=== PATIENT | female | born 1960 | race African-American/Black ===

== ENCOUNTER 2017-12-26 12:55 | Inpatient (IN) | payer OTHER ==
[~2017-12-26] VITALS: Ht 182.9 cm; Wt 112.9 kg
[2017-12-26] MEDS ORDERED: Sodium Chloride 500ML 500 ML IV ONE (13:09)
[2017-12-26 13:10] VITALS: BP 94/77
[2017-12-26] MEDS ORDERED: Solu-MEDROL 125mg Inj IVP ONE (13:15)
[2017-12-26] MEDS: Ipratropium 0.02% Inh Soln 2.5ml UD HHN SCH ×3 (13:21→14:14)
[2017-12-26] MEDS: Albuterol ud Inhalation HHN SCH ×3 (13:21→14:06)
[2017-12-26 13:55] LABS: HEMATOCRIT 40.4 % (37.0-47.0); HEMOGLOBIN 13.6 G/DL (12.0-16.0); MEAN CORPUSCULAR VOLUME 85 FL (80-99); PLATELET COUNT 242 K/UL (150-450); RED BLOOD COUNT 4.73 M/UL (4.20-5.40); RED CELL DISTRIBUTION WIDTH 13.4 % (11.6-14.8); WHITE BLOOD COUNT 16.1 K/UL (4.8-10.8)
[2017-12-26 14:00] VITALS: BP 108/55
[2017-12-26 14:16] LABS: ANION GAP 16 mmol/L (5-15); APPEARANCE,URINE SLIGHTLY CLOUDY; BILIRUBIN, URINE NEGATIVE (NEGATIVE); BLOOD UREA NITROGEN 16 mg/dL (7-18); CALCIUM 9.5 MG/DL (8.5-10.1); CARBON DIOXIDE 24 MMOL/L (21-32); CHLORIDE 99 MMOL/L (98-107); CREATININE 1.6 MG/DL (0.55-1.30); GLUCOSE, URINE (UA) NEGATIVE (NEGATIVE); KETONES,URINE 1+ (NEGATIVE); LEUKOCYTE ESTERASE ,URINE NEGATIVE (NEGATIVE); NITRITE,URINE NEGATIVE (NEGATIVE); PH,URINE 6 (4.5-8.0); POTASSIUM 2.9 MMOL/L (3.5-5.1); PROTEIN,URINE 3+ (NEGATIVE); SODIUM 138 MMOL/L (136-145); UROBILINOGEN,URINE 4 MG/DL (0.0-1.0)
[2017-12-26 14:21] LABS: COLOR,URINE YELLOW
[2017-12-26] MEDS ORDERED: PREDNISOLO15 MG/5 M1 ORAL (14:24)
[2017-12-26 14:26] LABS: ALANINE AMINOTRANSFERASE 14 U/L (12-78); ALBUMIN 2.8 G/DL (3.4-5.0); ALBUMIN/GLOBULIN RATIO 0.5 (1.0-2.7); ALKALINE PHOSPHATASE 73 U/L (46-116); ASPARTATE AMINO TRANSFERASE 20 U/L (15-37); BILIRUBIN,TOTAL 1.6 MG/DL (0.2-1.0)
[2017-12-26 14:28] LABS: BILIRUBIN,DIRECT 0.4 MG/DL (0.0-0.3)
[2017-12-26] MEDS ORDERED: Azithromycin 500 MG in NS 275 ML IV ONE (14:30)
[2017-12-26] MEDS ORDERED: cefTRIAXone 1 GM in NS 55 ML IVPB ONE (14:30)
[2017-12-26] MEDS ORDERED: NS IVLG ONE (14:45)
--- NOTE | 2017-12-26 14:50 | Emergency Room Report ---
History of Present Illness General Chief Complaint: Dyspnea/Respdistress Source: Patient Present Illness HPI 57-year-old female presents ED for evaluation. Patient presenting by EMS with shortness of breath, low O2 sats. Patient states she's been having cough and wheezing for the last one month. History of asthma. Given breathing treatment by EMS. Denies fevers or chills. Denies chest pain. Denies sick contacts or recent travel. No other aggravating or relieving factors. Denies any other associated symptoms Allergies: Coded Allergies: IBUPROFEN (Verified Allergy, Unknown, 12/26/17) TETRACYCLINE (Verified Allergy, Unknown, 12/26/17) Patient History Past Medical History: asthma Past Surgical History: none Pertinent Family History: none Social History: Denies: smoking, alcohol use, drug use Now: No Immunizations: UTD Reviewed Nursing Documentation: PMH: Agreed, PSxH: Agreed Nursing Documentation-PMH Past Medical History: No History, Except For Hx Asthma: Yes Review of Systems All Other Systems: negative except mentioned in HPI Physical Exam Vital Signs Date Time Temp Pulse Resp B/P (MAP) Pulse Ox O2 Delivery O2 Flow Rate FiO2 12/26/17 12:45 98.0 120 20 105/62 92 Room Air 98.1 12/26/17 13:22 2.0 28 Sp02 EP Interpretation: reviewed, normal General Appearance: no apparent distress, alert, GCS 15, non-toxic Head: normocephalic, atraumatic Eyes: bilateral eye normal inspection, bilateral eye PERRL ENT: hearing grossly normal, normal pharynx, no angioedema, normal voice Neck: full range of motion, supple/symm/no masses Respiratory: chest non-tender, decreased breath sounds, speaking full sentences , wheezing Cardiovascular #1: regular rate, rhythm, no edema Cardiovascular #2: 2+ carotid (R), 2+ carotid (L), 2+ radial (R), 2+ radial (L) , 2+ dorsalis pedis (R), 2+ dorsalis pedis (L) Gastrointestinal: normal bowel sounds, non tender, soft, non-distended, no guarding, no rebound Rectal: deferred Genitourinary: normal inspection, no CVA tenderness Musculoskeletal: back normal, gait/station normal, normal range of motion, non- tender Neurologic: alert, oriented x3, responsive, motor strength/tone normal, sensory intact, speech normal Psychiatric: judgement/insight normal, memory normal, mood/affect normal, no suicidal/homicidal ideation Reflexes: 3+ bicep (R), 3+ bicep (L), 3+ tricep (R), 3+ tricep (L), 3+ knee (R) , 3+ knee (L) Skin: normal color, no rash, warm/dry, well hydrated Lymphatic: no adenopathy Medical Decision Making Diagnostic Impression: Primary Impression: Respiratory distress Additional Impressions: Pneumonia Qualified Codes: J18.9 - Pneumonia, unspecified organism Sepsis Qualified Codes: A41.9 - Sepsis, unspecified organism Renal insufficiency ER Course Hospital Course 57-year-old F presenting to ED with respiratory distress, wheezing Differential diagnoses include: Pneumonia, CHF exacerbation, pneumothorax, fluid overload Clinical course Patient placed on stretcher. 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 After initial history and physical, I ordered nebulizer treatments. I ordered labs, IV fluids, EKG, chest x-ray, blood cultures, UA. Patient placed on nasal cannula with O2 saturation improving Labs -leukocytosis noted, hemoglobin/hematocrit stable, Cr 1.6, lactate > 4 CXR - bilateral infiltrates EKG - sinus tachycardia, no ischemic changes abx given. Given 30 mL per KG fluid bolus Patient will require inpatient admission for further treatment and evaluation I feel this is a highly complex case requiring extensive working including EKG/ Rhythm strip, Xray/CT/US, Blood/urine lab work, repeat exams while in ED, and administration of strong opiates/narcotics for pain control, admission to hospital or close patient follow up. Diagnosis - pneumonia, respiratory distress, sepsis, renal insufficiency Patient admitted to telemetry in serious condition Labs Test 12/26/17 13:00 White Blood Count 16.1 K/UL (4.8-10.8) Red Blood Count 4.73 M/UL (4.20-5.40) Hemoglobin 13.6 G/DL (12.0-16.0) Hematocrit 40.4 % (37.0-47.0) Mean Corpuscular Volume 85 FL (80-99) Mean Corpuscular Hemoglobin 28.6 PG (27.0-31.0) Mean Corpuscular Hemoglobin Concent 33.5 G/DL (32.0-36.0) Red Cell Distribution Width 13.4 % (11.6-14.8) Platelet Count 242 K/UL (150-450) Mean Platelet Volume 7.7 FL (6.5-10.1) Neutrophils (%) (Auto) % (45.0-75.0) Lymphocytes (%) (Auto) % (20.0-45.0) Monocytes (%) (Auto) % (1.0-10.0) Eosinophils (%) (Auto) % (0.0-3.0) Basophils (%) (Auto) % (0.0-2.0) Differential Total Cells Counted 100 Neutrophils % (Manual) 89 % (45-75) Lymphocytes % (Manual) 6 % (20-45) Monocytes % (Manual) 5 % (1-10) Eosinophils % (Manual) 0 % (0-3) Basophils % (Manual) 0 % (0-2) Band Neutrophils 0 % (0-8) Platelet Estimate Adequate Platelet Morphology Normal Red Blood Cell Morphology Normal Urine Color Yellow Urine Appearance Slightly cloudy Urine pH 6 (4.5-8.0) Urine Specific [place] 1.010 (1.005-1.035) Urine Protein 3+ (NEGATIVE) Urine Glucose (UA) Negative (NEGATIVE) Urine Ketones 1+ (NEGATIVE) Urine Occult Blood 4+ (NEGATIVE) Urine Nitrite Negative (NEGATIVE) Urine Bilirubin Negative (NEGATIVE) Urine Urobilinogen 4 MG/DL (0.0-1.0) Urine Leukocyte Esterase Negative (NEGATIVE) Urine RBC 2-4 /HPF (0 - 2) Urine WBC 0-2 /HPF (0 - 2) Urine Squamous Epithelial Cells Few /LPF (NONE/OCC) Urine Bacteria Few /HPF (NONE) Sodium Level 138 MMOL/L (136-145) Potassium Level 2.9 MMOL/L (3.5-5.1) Chloride Level 99 MMOL/L (98-107) Carbon Dioxide Level 24 MMOL/L (21-32) Anion Gap 16 mmol/L (5-15) Blood Urea Nitrogen 16 mg/dL (7-18) Creatinine 1.6 MG/DL (0.55-1.30) Estimat Glomerular Filtration Rate 33.0 mL/min (>60) Glucose Level 146 MG/DL (74-106) Lactic Acid Level 4.90 mmol/L (0.66-2.22) Calcium Level 9.5 MG/DL (8.5-10.1) Total Bilirubin 1.6 MG/DL (0.2-1.0) Direct Bilirubin 0.4 MG/DL (0.0-0.3) Aspartate Amino Transf (AST/SGOT) 20 U/L (15-37) Alanine Aminotransferase (ALT/SGPT) 14 U/L (12-78) Alkaline Phosphatase 73 U/L (46-116) Pro-B-Type Natriuretic Peptide 201 pg/mL (0-125) Total Protein 8.2 G/DL (6.4-8.2) Albumin 2.8 G/DL (3.4-5.0) Globulin 5.4 g/dL Albumin/Globulin Ratio 0.5 (1.0-2.7) EKG Diagnostic Results Rate: tachycardiac Rhythm: NSR ST Segments: no acute changes ASA given to the pt in ED: No Rhythm Strip Diag. Results EP Interpretation: yes Rhythm: NSR, no PVC's, no ectopy Chest X-Ray Diagnostic Results Chest X-Ray Diagnostic Results : Chest X-Ray Ordered: Yes # of Views/Limited/Complete: 1 View Indication: Shortness of Breath EP Interpretation: Yes Interpretation: no effusion, no pneumothorax, other - bilateral PNA Impression: Other - PNA Electronically Signed by: Electronically signed by Seymour Chiang MD Last Vital Signs Date Time Temp Pulse Resp B/P (MAP) Pulse Ox O2 Delivery O2 Flow Rate FiO2 12/26/17 14:40 139 16 99 Nasal Cannula 2.0 28 12/26/17 14:00 108/55 12/26/17 13:10 98.8 98.8 Status: improved Disposition: ADMITTED INPATIENT Condition: Serious SEYMOUR CHIANG M.D. Dec 26, 2017 14:50
[2017-12-26 15:00] VITALS: BP 103/59
[2017-12-26] MEDS ORDERED: Azithromycin 500mg Inj IV ONE (15:02)
[2017-12-26] MEDS ORDERED: Albuterol/Ipratropium 3ml neb HHN ONE (15:45)
--- NOTE | 2017-12-26 15:54 | Diagnostic Imaging Report ---
Indication: Shortness of breath Technique: One view of the chest Comparison: None Findings: Bilateral infiltrates are demonstrated, involving the right upper and lower lobes, left lung base, sparing the left upper lobe pleural spaces are clear. Heart size is normal Impression: Bilateral infiltrates, likely pneumonia. Pulmonary edema also a possibility. Correlate with clinical findings
[2017-12-26 16:00] VITALS: BP 123/51
[2017-12-26 17:45] VITALS: BP 117/64
[2017-12-26] MEDS ORDERED: Promethazine/Codeine 5ml UD ORAL PRN (18:15)
[2017-12-26] MEDS ORDERED: Nitroglycerin Subl 0.4mg tab SL PRN (18:15)
[2017-12-26] MEDS ORDERED: LORazepam Inj 2mg/ml 1ml IV PRN (18:15)
[2017-12-26] MEDS ORDERED: Morphine Sulfate 2mg/ml Inj IVP PRN (18:15)
[2017-12-26] MEDS ORDERED: ALBUTEROL2.5 MG/3 M INH (19:07)
[2017-12-26] MEDS ORDERED: BREO ELLIPTA 21 EACH IH (19:09)
[2017-12-26 20:00] VITALS: BP 121/68
[2017-12-26] MEDS: Zosyn 3.375gm q8h **Extended infusion IVPB SCH ×2 (20:05)
[2017-12-26] MEDS: Theophylline ER 100mg ORAL SCH (21:40)
[2017-12-26] MEDS: Heparin 5000 units/ml inj SUBQ SCH (21:42)
[2017-12-26] MEDS ORDERED: Piperacillin/Tazobactam 2.25 GM in D5W 55 ML IV SCH (22:00)
[2017-12-27] VITALS: BP 112/65
[2017-12-27] MEDS: Solu-MEDROL 125mg Inj IV SCH ×5 (00:11→23:52)
[2017-12-27 04:00] VITALS: BP 104/67
[2017-12-27] MEDS: Zosyn 3.375gm q8h **Extended infusion IVPB SCH ×2 (06:33)
--- NOTE | 2017-12-27 07:38 | History and Physical ---
History of Present Illness General Date patient seen: Dec 27, 2017 Reason for Hospitalization: Dyspnea/Respdistress Present Illness HPI 57-year-old female with hx of Asthma, sinusitis presented to ER ED with CC of shortness of breath, low O2 sats. Patient states she's been having cough and wheezing for the last one month. History of asthma. Given breathing treatment by EMS. Denies fevers or chills. Denies chest pain. . Denies any other associated symptoms. Her cxr in ER showed extensive bilateral infiltrate , pneumonia VS pulmonary edema. She is admitted to [facility] for further evaluation Allergies: Coded Allergies: IBUPROFEN (Verified Allergy, Unknown, 12/26/17) TETRACYCLINE (Verified Allergy, Unknown, 12/26/17) Medication History Scheduled Fluticasone/Vilanterol (Breo Ellipta 200-25 Mcg INH), 1 EACH IH NEEDED, ( Reported) Scheduled PRN Albuterol Sulfate* (Albuterol Sulfate Hhn*), 3 ML INH QID PRN for Shortness of Breath, (Reported) Patient History Healthcare decision maker Dominique Hopkins Resuscitation status Full Code Advanced Directive on File Past Medical/Surgical History Past Medical/Surgical History: (1) History of asthma Review of Systems Constitutional: Reports: no symptoms All Other Systems: negative except mentioned in HPI Physical Exam General Appearance: WD/WN Lines, tubes and drains: peripheral HEENT: normocephalic, atraumatic Neck: non-tender, normal alignment Respiratory/Chest: chest wall non-tender, lungs clear Breasts: no masses Cardiovascular/Chest: normal peripheral pulses Genitourinary/Rectal: normal genital exam, normal rectal exam Extremities: normal range of motion, non-tender Skin Exam: normal pigmentation Neurologic: all around presser II-XII grossly normal Last 24 Hour Vital Signs Date Time Temp Pulse Resp B/P (MAP) Pulse Ox O2 Delivery O2 Flow Rate FiO2 12/27/17 04:00 71 12/27/17 04:00 97.9 70 22 104/67 98 Nasal Cannula 2.0 97.9 12/27/17 00:00 85 12/27/17 00:00 97.7 84 22 112/65 97 Nasal Cannula 2.0 97.7 12/26/17 22:21 114 20 99 Nasal Cannula 2.0 28 12/26/17 22:20 108 20 94 Nasal Cannula 2.0 28 2/23/18 20:00 116 12/26/17 20:00 97.9 92 20 121/68 96 Nasal Cannula 2.0 97.9 12/26/17 19:30 Nasal Cannula 2.0 28 12/26/17 19:30 96 Nasal Cannula 2.0 28 12/26/17 17:45 99.7 126 22 117/64 96 Nasal Cannula 2.0 99.7 12/26/17 17:32 98.2 126 19 120/73 98 Nasal Cannula 2.0 12/26/17 16:00 98.3 135 16 123/51 100 Nasal Cannula 2.0 98.3 12/26/17 15:56 135 18 99 Nasal Cannula 2.0 28 12/26/17 15:44 135 19 96 Nasal Cannula 2.0 28 12/26/17 15:00 138 14 103/59 93 Room Air 12/26/17 14:40 139 16 99 Nasal Cannula 2.0 28 12/26/17 14:15 139 18 99 Nasal Cannula 2.0 28 12/26/17 14:05 139 18 99 Nasal Cannula 2.0 28 12/26/17 14:00 138 14 108/55 98 Simple Mask 10.0 12/26/17 13:33 135 19 97 Nasal Cannula 2.0 28 12/26/17 13:31 136 18 97 Nasal Cannula 2.0 28 12/26/17 13:26 138 20 Nasal Cannula 2.0 28 12/26/17 13:22 140 22 97 Nasal Cannula 2.0 28 12/26/17 13:10 18 Room Air 12/26/17 13:10 98.8 145 18 94/77 94 Room Air 98.8 12/26/17 12:45 98.0 120 20 105/62 92 Room Air 98.1 Intake and Output 12/26/17 12/27/17 19:00 07:00 Intake Total 615 ml 110.0 ml Output Total 250 ml Balance 365 ml 110.0 ml Intake Oral 60 ml IV Total 555 ml 110.0 ml Output Urine Total 250 ml # Voids 1 4 # Bowel Movements 2 Laboratory Tests Test 12/26/17 13:00 12/26/17 15:15 White Blood Count 16.1 K/UL (4.8-10.8) H Red Blood Count 4.73 M/UL (4.20-5.40) Hemoglobin 13.6 G/DL (12.0-16.0) Hematocrit 40.4 % (37.0-47.0) Mean Corpuscular Volume 85 FL (80-99) Mean Corpuscular Hemoglobin 28.6 PG (27.0-31.0) Mean Corpuscular Hemoglobin Concent 33.5 G/DL (32.0-36.0) Red Cell Distribution Width 13.4 % (11.6-14.8) Platelet Count 242 K/UL (150-450) Mean Platelet Volume 7.7 FL (6.5-10.1) Neutrophils (%) (Auto) % (45.0-75.0) Lymphocytes (%) (Auto) % (20.0-45.0) Monocytes (%) (Auto) % (1.0-10.0) Eosinophils (%) (Auto) % (0.0-3.0) Basophils (%) (Auto) % (0.0-2.0) Differential Total Cells Counted 100 Neutrophils % (Manual) 89 % (45-75) H Lymphocytes % (Manual) 6 % (20-45) L Monocytes % (Manual) 5 % (1-10) Eosinophils % (Manual) 0 % (0-3) Basophils % (Manual) 0 % (0-2) Band Neutrophils 0 % (0-8) Platelet Estimate Adequate Platelet Morphology Normal Red Blood Cell Morphology Normal Urine Color Yellow Urine Appearance Slightly cloudy Urine pH 6 (4.5-8.0) Urine Specific [place] 1.010 (1.005-1.035) Urine Protein 3+ (NEGATIVE) H Urine Glucose (UA) Negative (NEGATIVE) Urine Ketones 1+ (NEGATIVE) H Urine Occult Blood 4+ (NEGATIVE) H Urine Nitrite Negative (NEGATIVE) Urine Bilirubin Negative (NEGATIVE) Urine Urobilinogen 4 MG/DL (0.0-1.0) H Urine Leukocyte Esterase Negative (NEGATIVE) Urine RBC 2-4 /HPF (0 - 2) H Urine WBC 0-2 /HPF (0 - 2) Urine Squamous Epithelial Cells Few /LPF (NONE/OCC) Urine Bacteria Few /HPF (NONE) Sodium Level 138 MMOL/L (136-145) Potassium Level 2.9 MMOL/L (3.5-5.1) L Chloride Level 99 MMOL/L (98-107) Carbon Dioxide Level 24 MMOL/L (21-32) Anion Gap 16 mmol/L (5-15) H Blood Urea Nitrogen 16 mg/dL (7-18) Creatinine 1.6 MG/DL (0.55-1.30) H Estimat Glomerular Filtration Rate 33.0 mL/min (>60) Glucose Level 146 MG/DL (74-106) H Lactic Acid Level 4.90 mmol/L (0.66-2.22) H 6.20 mmol/L (0.66-2.22) H Calcium Level 9.5 MG/DL (8.5-10.1) Total Bilirubin 1.6 MG/DL (0.2-1.0) H Direct Bilirubin 0.4 MG/DL (0.0-0.3) H Aspartate Amino Transf (AST/SGOT) 20 U/L (15-37) Alanine Aminotransferase (ALT/SGPT) 14 U/L (12-78) Alkaline Phosphatase 73 U/L (46-116) Pro-B-Type Natriuretic Peptide 201 pg/mL (0-125) H Total Protein 8.2 G/DL (6.4-8.2) Albumin 2.8 G/DL (3.4-5.0) L Globulin 5.4 g/dL Albumin/Globulin Ratio 0.5 (1.0-2.7) L Microbiology Date/Time Source Procedure Growth Status 12/26/17 13:00 Nasal Nares Influenza Types A,B Antigen (JOHN) - Final Complete 12/26/17 20:00 Stool Clostridium difficile Toxin Assay - Final Complete Height (Feet): 6 Height (Inches): 11.00 Weight (Pounds): 248 Medications Current Medications Medications (Trade) Dose Ordered Sig/Renee Route PRN Reason Start Time Stop Time Status Last Admin Dose Admin Acetaminophen (Tylenol) 650 mg Q6H PRN ORAL Mild Pain/Temp > 100.5 12/26/17 21:30 01/25/18 21:29 12/26/17 21:40 Albuterol/ Ipratropium (Albuterol/ Ipratropium) 3 ml Q4H PRN HHN dyspnea 12/26/17 18:15 12/31/17 18:14 Dextrose (Dextrose 50%) STAT PRN IV Hypoglycemia 12/26/17 18:15 01/25/18 18:14 Heparin Sodium (Porcine) (Heparin 5000 units/ml) 5,000 units EVERY 12 HOURS SUBQ 12/26/17 21:00 01/25/18 20:59 12/26/17 21:42 Lorazepam (Ativan 2mg/ml 1ml) 0.5 mg Q4H PRN IV For Anxiety 12/26/17 18:15 01/02/18 18:14 Methylprednisolone Sodium Succinate (Solu-MEDROL) 60 mg EVERY 6 HOURS IV 12/27/17 00:00 01/26/18 00:00 12/27/17 06:33 Morphine Sulfate (Morphine Sulfate) 2 mg Q4H PRN IVP severe pain 7-10 12/26/17 18:15 01/02/18 18:14 Nitroglycerin (Ntg) 0.4 mg Q5M X 3 DOSES PRN SL Prn Chest Pain 12/26/17 18:15 01/25/18 18:14 Ondansetron HCl (Zofran) 4 mg Q6H PRN IVP Nausea & Vomiting 12/26/17 18:15 01/25/18 18:14 Piperacillin Sod/ Tazobactam Sod 3.375 gm/Sodium Chloride 110 ml @ 27.5 mls/hr EVERY 8 HOURS IVPB 12/26/17 20:00 12/31/17 19:59 12/27/17 06:33 Promethazine HCl/ Codeine (Phenergan with Codeine) 5 ml Q6H PRN ORAL cough 12/26/17 18:15 01/25/18 18:14 Temazepam (Restoril) 15 mg HSPRN PRN ORAL Insomnia 12/26/17 18:15 01/02/18 18:14 Theophylline (Rich-Dur) 100 mg EVERY 12 HOURS ORAL 12/26/17 21:00 01/25/18 20:59 12/26/17 21:40 Assessment/Plan Problem List: (1) Pneumonia ICD Codes: J18.9 - Pneumonia, unspecified organism SNOMED: 721123635, [id number] Qualifiers: Qualified Codes: J18.9 - Pneumonia, unspecified organism (2) Respiratory distress ICD Codes: R06.03 - Acute respiratory distress SNOMED: 608181101 Assessment/Plan respiratory treatment iv abx iv steroids echo check cxr in a few days dvt prophylaxis RITU RODRIGUEZ Dec 27, 2017 07:38
[2017-12-27 08:00] VITALS: BP 115/70
[2017-12-27] MEDS: Theophylline ER 100mg ORAL SCH ×2 (09:57→21:04)
[2017-12-27] MEDS: Heparin 5000 units/ml inj SUBQ SCH ×2 (09:58→21:07)
--- NOTE | 2017-12-27 11:23 | Consultation ---
History of Present Illness General Date patient seen: Dec 27, 2017 Time patient seen: 11:22 Chief Complaint: Dyspnea/Respdistress Present Illness HPI 57 y/o F with hx of Asthma, sinusitis presented to ED on 12/26 with SOB, hypoxia. Per patient, she has been coughing and wheezing for the last month. CXR in the ED showed extensive b/l infiltrate. Patient refers it started with sinus infection around 's day and from there continue to worsened. Denies f/c, CP, sick contacts, recent travel [place], Tm 99.7. At 2L, Leukocytosis to 16.3. Lactic acidosis Allergies: Coded Allergies: IBUPROFEN (Verified Allergy, Unknown, 12/26/17) TETRACYCLINE (Verified Allergy, Unknown, 12/26/17) Medication History Scheduled Fluticasone/Vilanterol (Breo Ellipta 200-25 Mcg INH), 1 EACH IH NEEDED, ( Reported) Scheduled PRN Albuterol Sulfate* (Albuterol Sulfate Hhn*), 3 ML INH QID PRN for Shortness of Breath, (Reported) Patient History Healthcare decision maker Dominique Hopkins Resuscitation status Full Code Advanced Directive on File Patient History Narrative PMhx: as above Shx: Denies: smoking, alcohol use, drug use Fhx: non contributory Review of Systems All Other Systems: negative except mentioned in HPI Physical Exam Physical Exam Narrative General Appearance: WD/WN HEENT: normocephalic, atraumatic Neck: non-tender, normal alignment Respiratory/Chest: chest wall non-tender, lungs clear Breasts: no masses Cardiovascular/Chest: normal peripheral pulses Genitourinary/Rectal: normal genital exam, normal rectal exam Extremities: normal range of motion, non-tender Skin Exam: normal pigmentation Neurologic: community organization aide II-XII grossly normal Last 24 Hour Vital Signs Date Time Temp Pulse Resp B/P (MAP) Pulse Ox O2 Delivery O2 Flow Rate FiO2 12/27/17 08:01 91 12/27/17 08:00 97.5 83 20 115/70 98 Nasal Cannula 2.0 97.5 12/27/17 04:00 71 12/27/17 04:00 97.9 70 22 104/67 98 Nasal Cannula 2.0 97.9 12/27/17 00:00 85 12/27/17 00:00 97.7 84 22 112/65 97 Nasal Cannula 2.0 97.7 12/26/17 22:21 114 20 99 Nasal Cannula 2.0 28 12/26/17 22:20 108 20 94 Nasal Cannula 2.0 28 12/26/17 20:00 116 12/26/17 20:00 97.9 92 20 121/68 96 Nasal Cannula 2.0 97.9 12/26/17 19:30 Nasal Cannula 2.0 28 12/26/17 19:30 96 Nasal Cannula 2.0 28 12/26/17 17:45 99.7 126 22 117/64 96 Nasal Cannula 2.0 99.7 12/26/17 17:32 98.2 126 19 120/73 98 Nasal Cannula 2.0 12/26/17 16:00 98.3 135 16 123/51 100 Nasal Cannula 2.0 98.3 12/26/17 15:56 135 18 99 Nasal Cannula 2.0 28 12/26/17 15:44 135 19 96 Nasal Cannula 2.0 28 12/26/17 15:00 138 14 103/59 93 Room Air 12/26/17 14:40 139 16 99 Nasal Cannula 2.0 28 12/26/17 14:15 139 18 99 Nasal Cannula 2.0 28 12/26/17 14:05 139 18 99 Nasal Cannula 2.0 28 12/26/17 14:00 138 14 108/55 98 Simple Mask 10.0 12/26/17 13:33 135 19 97 Nasal Cannula 2.0 28 12/26/17 13:31 136 18 97 Nasal Cannula 2.0 28 12/26/17 13:26 138 20 Nasal Cannula 2.0 28 12/26/17 13:22 140 22 97 Nasal Cannula 2.0 28 12/26/17 13:10 18 Room Air 12/26/17 13:10 98.8 145 18 94/77 94 Room Air 98.8 12/26/17 12:45 98.0 120 20 105/62 92 Room Air 98.1 Intake and Output 12/26/17 12/27/17 19:00 07:00 Intake Total 615 ml 110.0 ml Output Total 250 ml Balance 365 ml 110.0 ml Intake Oral 60 ml IV Total 555 ml 110.0 ml Output Urine Total 250 ml # Voids 1 4 # Bowel Movements 2 Laboratory Tests Test 12/26/17 13:00 12/26/17 15:15 White Blood Count 16.1 K/UL (4.8-10.8) H Red Blood Count 4.73 M/UL (4.20-5.40) Hemoglobin 13.6 G/DL (12.0-16.0) Hematocrit 40.4 % (37.0-47.0) Mean Corpuscular Volume 85 FL (80-99) Mean Corpuscular Hemoglobin 28.6 PG (27.0-31.0) Mean Corpuscular Hemoglobin Concent 33.5 G/DL (32.0-36.0) Red Cell Distribution Width 13.4 % (11.6-14.8) Platelet Count 242 K/UL (150-450) Mean Platelet Volume 7.7 FL (6.5-10.1) Neutrophils (%) (Auto) % (45.0-75.0) Lymphocytes (%) (Auto) % (20.0-45.0) Monocytes (%) (Auto) % (1.0-10.0) Eosinophils (%) (Auto) % (0.0-3.0) Basophils (%) (Auto) % (0.0-2.0) Differential Total Cells Counted 100 Neutrophils % (Manual) 89 % (45-75) H Lymphocytes % (Manual) 6 % (20-45) L Monocytes % (Manual) 5 % (1-10) Eosinophils % (Manual) 0 % (0-3) Basophils % (Manual) 0 % (0-2) Band Neutrophils 0 % (0-8) Platelet Estimate Adequate Platelet Morphology Normal Red Blood Cell Morphology Normal Urine Color Yellow Urine Appearance Slightly cloudy Urine pH 6 (4.5-8.0) Urine Specific [place] 1.010 (1.005-1.035) Urine Protein 3+ (NEGATIVE) H Urine Glucose (UA) Negative (NEGATIVE) Urine Ketones 1+ (NEGATIVE) H Urine Occult Blood 4+ (NEGATIVE) H Urine Nitrite Negative (NEGATIVE) Urine Bilirubin Negative (NEGATIVE) Urine Urobilinogen 4 MG/DL (0.0-1.0) H Urine Leukocyte Esterase Negative (NEGATIVE) Urine RBC 2-4 /HPF (0 - 2) H Urine WBC 0-2 /HPF (0 - 2) Urine Squamous Epithelial Cells Few /LPF (NONE/OCC) Urine Bacteria Few /HPF (NONE) Sodium Level 138 MMOL/L (136-145) Potassium Level 2.9 MMOL/L (3.5-5.1) L Chloride Level 99 MMOL/L (98-107) Carbon Dioxide Level 24 MMOL/L (21-32) Anion Gap 16 mmol/L (5-15) H Blood Urea Nitrogen 16 mg/dL (7-18) Creatinine 1.6 MG/DL (0.55-1.30) H Estimat Glomerular Filtration Rate 33.0 mL/min (>60) Glucose Level 146 MG/DL (74-106) H Lactic Acid Level 4.90 mmol/L (0.66-2.22) H 6.20 mmol/L (0.66-2.22) H Calcium Level 9.5 MG/DL (8.5-10.1) Total Bilirubin 1.6 MG/DL (0.2-1.0) H Direct Bilirubin 0.4 MG/DL (0.0-0.3) H Aspartate Amino Transf (AST/SGOT) 20 U/L (15-37) Alanine Aminotransferase (ALT/SGPT) 14 U/L (12-78) Alkaline Phosphatase 73 U/L (46-116) Pro-B-Type Natriuretic Peptide 201 pg/mL (0-125) H Total Protein 8.2 G/DL (6.4-8.2) Albumin 2.8 G/DL (3.4-5.0) L Globulin 5.4 g/dL Albumin/Globulin Ratio 0.5 (1.0-2.7) L Microbiology Date/Time Source Procedure Growth Status 12/26/17 13:00 Nasal Nares Influenza Types A,B Antigen (JOHN) - Final Complete 12/26/17 20:00 Stool Clostridium difficile Toxin Assay - Final Complete Height (Feet): 6 Height (Inches): 11.00 Weight (Pounds): 248 Medications Current Medications Medications (Trade) Dose Ordered Sig/Renee Route PRN Reason Start Time Stop Time Status Last Admin Dose Admin Acetaminophen (Tylenol) 650 mg Q6H PRN ORAL Mild Pain/Temp > 100.5 12/26/17 21:30 01/25/18 21:29 12/26/17 21:40 Albuterol/ Ipratropium (Albuterol/ Ipratropium) 3 ml Q4H PRN HHN dyspnea 12/26/17 18:15 12/31/17 18:14 Dextrose (Dextrose 50%) STAT PRN IV Hypoglycemia 12/26/17 18:15 01/25/18 18:14 Heparin Sodium (Porcine) (Heparin 5000 units/ml) 5,000 units EVERY 12 HOURS SUBQ 12/26/17 21:00 01/25/18 20:59 12/27/17 09:58 Lorazepam (Ativan 2mg/ml 1ml) 0.5 mg Q4H PRN IV For Anxiety 12/26/17 18:15 01/02/18 18:14 Methylprednisolone Sodium Succinate (Solu-MEDROL) 60 mg EVERY 6 HOURS IV 12/27/17 00:00 01/26/18 00:00 12/27/17 06:33 Morphine Sulfate (Morphine Sulfate) 2 mg Q4H PRN IVP severe pain 7-10 12/26/17 18:15 01/02/18 18:14 Nitroglycerin (Ntg) 0.4 mg Q5M X 3 DOSES PRN SL Prn Chest Pain 12/26/17 18:15 01/25/18 18:14 Ondansetron HCl (Zofran) 4 mg Q6H PRN IVP Nausea & Vomiting 12/26/17 18:15 01/25/18 18:14 Piperacillin Sod/ Tazobactam Sod 3.375 gm/Sodium Chloride 110 ml @ 27.5 mls/hr EVERY 8 HOURS IVPB 12/26/17 20:00 12/31/17 19:59 12/27/17 06:33 Promethazine HCl/ Codeine (Phenergan with Codeine) 5 ml Q6H PRN ORAL cough 12/26/17 18:15 01/25/18 18:14 Temazepam (Restoril) 15 mg HSPRN PRN ORAL Insomnia 12/26/17 18:15 01/02/18 18:14 Theophylline (Rich-Dur) 100 mg EVERY 12 HOURS ORAL 12/26/17 21:00 01/25/18 20:59 12/27/17 09:57 Assessment/Plan Assessment/Plan Abx: Zosyn 12/26- Ceftriaxone 12/26x1 Azithromycin x1 Assessment: PNA, CAP -CXR: Bilateral infiltrates, likely pneumonia. Pulmonary edema also a possibility. Correlate with clinical findings -Influenza sc neg -sp cx p Recent sinus inefction Leukocytosis -afebrile -Cdiff neg -u/a neg Lactic acidosis Hx of Asthma Hx of sinuitis Plan: -Switch Zosyn #2/7 to IV Unasyn and azithromycin ; upon discharge can be transition to PO Augmentin and azithromycin -f/u cx -Monitor CBC/BMP, temperatures -aspiration precautions Thank you for this consultation. Will continue to follow along with you. Discussed with Cherie Alexandra M.D. Dec 27, 2017 11:23
[2017-12-27 12:00] VITALS: BP 117/76
[2017-12-27] MEDS: Ampicillin/Sulbactam Sod 1.5 GM in NS 55 ML IVPB SCH ×3 (13:30→23:51)
[2017-12-27] MEDS: Azithromycin 250mg tab ORAL SCH (13:31)
[2017-12-27 16:00] VITALS: BP 125/79
--- NOTE | 2017-12-27 16:04 | Cardiology Progress Note ---
Subjective Subjective [id number] Objective Last 24 Hour Vital Signs Date Time Temp Pulse Resp B/P (MAP) Pulse Ox O2 Delivery O2 Flow Rate FiO2 12/27/17 12:00 98.2 77 20 117/76 95 Nasal Cannula 2.0 98.2 12/27/17 11:55 82 12/27/17 08:01 91 12/27/17 08:00 97.5 83 20 115/70 98 Nasal Cannula 2.0 97.5 12/27/17 04:00 71 12/27/17 04:00 97.9 70 22 104/67 98 Nasal Cannula 2.0 97.9 12/27/17 00:00 85 12/27/17 00:00 97.7 84 22 112/65 97 Nasal Cannula 2.0 97.7 12/26/17 22:21 114 20 99 Nasal Cannula 2.0 28 12/26/17 22:20 108 20 94 Nasal Cannula 2.0 28 12/26/17 20:00 116 12/26/17 20:00 97.9 92 20 121/68 96 Nasal Cannula 2.0 97.9 12/26/17 19:30 Nasal Cannula 2.0 28 12/26/17 19:30 96 Nasal Cannula 2.0 28 12/26/17 17:45 99.7 126 22 117/64 96 Nasal Cannula 2.0 99.7 12/26/17 17:32 98.2 126 19 120/73 98 Nasal Cannula 2.0 Intake and Output 12/26/17 12/27/17 19:00 07:00 Intake Total 615 ml 110.0 ml Output Total 250 ml Balance 365 ml 110.0 ml Intake Oral 60 ml IV Total 555 ml 110.0 ml Output Urine Total 250 ml # Voids 1 4 # Bowel Movements 2 Microbiology Date/Time Source Procedure Growth Status 12/26/17 13:00 Nasal Nares Influenza Types A,B Antigen (JOHN) - Final Complete 12/26/17 20:00 Stool Clostridium difficile Toxin Assay - Final Complete ORQUIDEA CHAVES Dec 27, 2017 16:04
[2017-12-27 17:16] LABS: ANION GAP 8 mmol/L (5-15); BLOOD UREA NITROGEN 11 mg/dL (7-18); CALCIUM 9.3 MG/DL (8.5-10.1); CARBON DIOXIDE 25 MMOL/L (21-32); CHLORIDE 106 MMOL/L (98-107); POTASSIUM 3.5 MMOL/L (3.5-5.1); SODIUM 139 MMOL/L (136-145)
[2017-12-27] MEDS: Albuterol/Ipratropium 3ml neb HHN PRN (19:18)
[2017-12-27 20:00] VITALS: BP 108/78
--- NOTE | 2017-12-27 21:30 | Consultation ---
DATE OF CONSULTATION: 12/27/2017 CARDIOLOGY CONSULTATION CONSULTING PHYSICIAN: Emilie Blandon M.D. REFERRING PHYSICIAN: PATIENT IDENTIFICATION: This is a 57-year-old female. HISTORY OF PRESENT ILLNESS: Taken from the patient who is very pleasant lady and she stated that she thinks she had severe sinusitis on 17 of December. She fell asleep and she thought that she aspirated and since that time, she has shortness of breath and not much fever, but very short of breath. She was treated with inhalers and prednisone, but continued to get worse. She finally ended up in the emergency department here. Today, she feels much better than yesterday. The patient has history of asthma and that is essentially old. PAST MEDICAL HISTORY: Remote pneumonia at age 8. HOME MEDICATIONS: Include albuterol and fluticasone. HABITS: No history of drinking, smoking, or drug abuse. REVIEW OF SYSTEMS: CARDIAC: Negative. No elevated cholesterol. No history of heart attack. No history of heart failure in the past, otherwise she is very strong, robust, and walks without any significant symptoms. She did not have any chest pain or syncopal episodes. FAMILY HISTORY: Negative for coronary artery disease. PHYSICAL EXAMINATION: GENERAL: The patient is a very pleasant patient. She is relatively comfortable. She is saturating 95% on 2 L. VITAL SIGNS: Blood pressure 110/70, heart rate is 80, temperature is normal, oxygen saturation is normal at on 2 L. HEENT: PERRLA. EOMI. NECK: Neck veins are not distended. LUNGS: She has rales bilaterally. HEART: Regular. Distant S1. Tachycardic. There is no S3. BREASTS: No masses. ABDOMEN: Soft, nontender. EXTREMITIES: Lower extremities, no edema. LABORATORY AND DIAGNOSTIC DATA: ECG shows sinus rhythm. Chest x-ray, bilateral pneumonia. Labs all reviewed. Potassium yesterday was 2.9. Lactic acid 4.9. AST, ALT are normal. White count 16.1, hemoglobin 13.6, platelets 242,000. Echo reviewed. IMPRESSION AND RECOMMENDATION: Bilateral pneumonia. The patient has history of asthma. I doubt that this is heart failure. She is taking care by product marketing director. She is on antibiotics. I want to repeat the potassium level today because yesterday she was given potassium in the emergency department, but it was not repeated. I do not have any additional recommendations from cardiac standpoint. Thank you very much for your consultation. Emilie Blandon M.D. DR: Johny JOB#: [id number] CC:
[2017-12-28] VITALS: BP 107/74
[2017-12-28 04:00] VITALS: BP 105/60
[2017-12-28 05:12] LABS: HEMATOCRIT 31.4 % (37.0-47.0); HEMOGLOBIN 10.8 G/DL (12.0-16.0); MEAN CORPUSCULAR VOLUME 84 FL (80-99); PLATELET COUNT 286 K/UL (150-450); RED BLOOD COUNT 3.74 M/UL (4.20-5.40); RED CELL DISTRIBUTION WIDTH 13.1 % (11.6-14.8); WHITE BLOOD COUNT 21.1 K/UL (4.8-10.8)
[2017-12-28 05:40] LABS: ALANINE AMINOTRANSFERASE 21 U/L (12-78); ALBUMIN 2.1 G/DL (3.4-5.0); ALBUMIN/GLOBULIN RATIO 0.4 (1.0-2.7); ALKALINE PHOSPHATASE 58 U/L (46-116); ANION GAP 6 mmol/L (5-15); ASPARTATE AMINO TRANSFERASE 17 U/L (15-37); BILIRUBIN,TOTAL 0.4 MG/DL (0.2-1.0); BLOOD UREA NITROGEN 14 mg/dL (7-18); CALCIUM 9.1 MG/DL (8.5-10.1); CARBON DIOXIDE 26 MMOL/L (21-32); CHLORIDE 107 MMOL/L (98-107); POTASSIUM 3.5 MMOL/L (3.5-5.1); SODIUM 139 MMOL/L (136-145)
[2017-12-28] MEDS: Solu-MEDROL 125mg Inj IV SCH ×2 (06:06→11:52)
[2017-12-28] MEDS: Ampicillin/Sulbactam Sod 1.5 GM in NS 55 ML IVPB SCH ×2 (06:06→11:53)
[2017-12-28 08:00] VITALS: BP 135/83
[2017-12-28] MEDS: Albuterol/Ipratropium 3ml neb HHN PRN (08:09)
[2017-12-28] MEDS: Theophylline ER 100mg ORAL SCH ×2 (09:32→21:14)
[2017-12-28] MEDS: Heparin 5000 units/ml inj SUBQ SCH ×2 (09:34→21:16)
--- NOTE | 2017-12-28 10:03 | Diagnostic Imaging Report ---
. Indication: Reason For Exam: DYSPNEA Technique: XRAY Chest 1v Comparison:12/26/2017 Findings: Increasing infiltrate is noted in the right upper lobe. Infiltrate in the left lower lobe is decreased. Cardiac mediastinal silhouette is unchanged. Impression: Increased patchy airspace disease in the left base with increasing airspace disease in the right upper lobe. This is consistent with pneumonia.
[2017-12-28 12:00] VITALS: BP 124/73
--- NOTE | 2017-12-28 12:22 | Pulmonology Progress Note ---
Assessment/Plan Problems: (1) Pneumonia (2) Respiratory distress Assessment/Plan cxr reviewed, RML infiltrate with sharp wedges continue abx check cultures med/surg cardiology note appreciated. Subjective ROS Limited/Unobtainable: No Interval Events: improving, still coughing Allergies: Coded Allergies: IBUPROFEN (Verified Allergy, Unknown, 12/26/17) TETRACYCLINE (Verified Allergy, Unknown, 12/26/17) Objective Last 24 Hour Vital Signs Date Time Temp Pulse Resp B/P (MAP) Pulse Ox O2 Delivery O2 Flow Rate FiO2 12/28/17 08:16 80 18 97 Nasal Cannula 2.0 28 12/28/17 08:00 97.0 90 20 135/83 97 Nasal Cannula 2.0 97.0 12/28/17 07:58 Nasal Cannula 2.0 28 12/28/17 07:50 74 18 96 Nasal Cannula 2.0 28 12/28/17 07:45 96 Nasal Cannula 2.0 28 12/28/17 04:00 97.5 61 20 105/60 97 Nasal Cannula 2.0 97.5 12/28/17 04:00 65 12/28/17 00:00 57 12/28/17 00:00 98.2 58 20 107/74 97 Nasal Cannula 2.0 98.2 12/27/17 22:43 Nasal Cannula 12/27/17 22:43 Nasal Cannula 12/27/17 20:00 84 12/27/17 20:00 98.0 76 20 108/78 96 Nasal Cannula 2.0 98.0 12/27/17 19:47 88 18 97 Nasal Cannula 2.0 28 12/27/17 19:47 88 18 97 Nasal Cannula 2.0 28 12/27/17 19:25 85 18 95 Nasal Cannula 2.0 28 12/27/17 19:24 Nasal Cannula 2.0 28 12/27/17 19:24 95 Nasal Cannula 2.0 28 12/27/17 19:23 85 18 95 Nasal Cannula 2.0 28 12/27/17 16:00 79 12/27/17 16:00 97.9 76 20 125/79 95 Nasal Cannula 2.0 97.9 Intake and Output 12/27/17 12/28/17 19:00 07:00 Intake Total 1110.08 ml 230 ml Output Total 650 ml Balance 460.08 ml 230 ml Intake Oral 780 ml 120 ml IV Total 330.08 ml 110 ml Output Urine Total 650 ml # Voids 3 3 # Bowel Movements 4 1 General Appearance: WD/WN HEENT: normocephalic, anicteric Respiratory/Chest: chest wall non-tender, lungs clear Breasts: no masses Cardiovascular: normal peripheral pulses, normal rate Abdomen: normal bowel sounds, soft, non tender Genitourinary: normal external genitalia Extremities: no cyanosis Skin: no rash Neurologic/Psychiatric: die developer II-XII grossly normal, abnormal gait Lymphatic: no neck adenopathy Microbiology Date/Time Source Procedure Growth Status 12/26/17 13:05 Blood Blood Culture - Preliminary Streptococcus Species Resulted 12/26/17 13:00 Blood Blood Culture - Preliminary Streptococcus Species Resulted 12/27/17 04:00 Sputum Gram Stain - Final Resulted 12/27/17 04:00 Sputum Sputum Culture - Preliminary NORMAL UPPER RESPIRATORY KALINA PRESENT Resulted 12/26/17 13:00 Nasal Nares Influenza Types A,B Antigen (JOHN) - Final Complete 12/26/17 20:00 Stool Clostridium difficile Toxin Assay - Final Complete Laboratory Tests 12/27/17 16:53: Sodium Level 139, Potassium Level 3.5, Chloride Level 106, Carbon Dioxide Level 25, Anion Gap 8, Blood Urea Nitrogen 11, Creatinine 1.0, Estimat Glomerular Filtration Rate > 60, Glucose Level 123H, Calcium Level 9.3 12/28/17 03:50: Sodium Level 139, Potassium Level 3.5, Chloride Level 107, Carbon Dioxide Level 26, Anion Gap 6, Blood Urea Nitrogen 14, Creatinine 1.0, Estimat Glomerular Filtration Rate > 60, Glucose Level 129H, Calcium Level 9.1, White Blood Count 21.1H, Red Blood Count 3.74L, Hemoglobin 10.8L, Hematocrit 31.4L, Mean Corpuscular Volume 84, Mean Corpuscular Hemoglobin 29.0, Mean Corpuscular Hemoglobin Concent 34.5, Red Cell Distribution Width 13.1, Platelet Count 286, Mean Platelet Volume 6.7, Neutrophils (%) (Auto) , Lymphocytes (%) (Auto) , Monocytes (%) (Auto) , Eosinophils (%) (Auto) , Basophils (%) (Auto) , Differential Total Cells Counted 100, Neutrophils % (Manual) 89H, Lymphocytes % (Manual) 9L, Monocytes % (Manual) 2, Eosinophils % (Manual) 0, Basophils % ( Manual) 0, Band Neutrophils 0, Platelet Estimate Adequate, Platelet Morphology Normal, Hypochromasia 1+, Lactic Acid Level 1.30, Total Bilirubin 0.4, Aspartate Amino Transf (AST/SGOT) 17, Alanine Aminotransferase (ALT/SGPT) 21, Alkaline Phosphatase 58, Pro-B-Type Natriuretic Peptide 706H, Total Protein 6.8 , Albumin 2.1L, Globulin 4.7, Albumin/Globulin Ratio 0.4L Current Medications Medications (Trade) Dose Ordered Sig/Renee Route PRN Reason Start Time Stop Time Status Last Admin Dose Admin Acetaminophen (Tylenol) 650 mg Q6H PRN ORAL Mild Pain/Temp > 100.5 12/26/17 21:30 01/25/18 21:29 12/27/17 21:09 Albuterol/ Ipratropium (Albuterol/ Ipratropium) 3 ml Q4H PRN HHN dyspnea 12/26/17 18:15 12/31/17 18:14 12/28/17 08:09 Ampicillin Sodium/ Sulbactam Sodium 1.5 gm/Sodium Chloride 55 ml @ 110 mls/hr Q6HR IVPB 12/27/17 14:00 01/03/18 13:59 12/28/17 11:53 Azithromycin (Zithromax) 500 mg DAILY@1400 ORAL 12/27/17 14:00 01/03/18 13:59 12/27/17 13:31 Dextrose (Dextrose 50%) STAT PRN IV Hypoglycemia 12/26/17 18:15 01/25/18 18:14 Heparin Sodium (Porcine) (Heparin 5000 units/ml) 5,000 units EVERY 12 HOURS SUBQ 12/26/17 21:00 01/25/18 20:59 12/28/17 09:34 Lorazepam (Ativan 2mg/ml 1ml) 0.5 mg Q4H PRN IV For Anxiety 12/26/17 18:15 01/02/18 18:14 Methylprednisolone Sodium Succinate (Solu-MEDROL) 60 mg EVERY 6 HOURS IV 12/27/17 00:00 01/26/18 00:00 12/28/17 11:52 Morphine Sulfate (Morphine Sulfate) 2 mg Q4H PRN IVP severe pain 7-10 12/26/17 18:15 01/02/18 18:14 Nitroglycerin (Ntg) 0.4 mg Q5M X 3 DOSES PRN SL Prn Chest Pain 12/26/17 18:15 01/25/18 18:14 Ondansetron HCl (Zofran) 4 mg Q6H PRN IVP Nausea & Vomiting 12/26/17 18:15 01/25/18 18:14 Promethazine HCl/ Codeine (Phenergan with Codeine) 5 ml Q6H PRN ORAL cough 12/26/17 18:15 01/25/18 18:14 Temazepam (Restoril) 15 mg HSPRN PRN ORAL Insomnia 12/26/17 18:15 01/02/18 18:14 Theophylline (Rich-Dur) 100 mg EVERY 12 HOURS ORAL 12/26/17 21:00 01/25/18 20:59 12/28/17 09:32 RITU RODRIGUEZ Dec 28, 2017 12:22
--- NOTE | 2017-12-28 13:56 | Cardiology Progress Note ---
Assessment/Plan Assessment/Plan pneumonia no evidence of CHF improving could not review echo myself, rely on the report Subjective Subjective improving, no cardiac compalints Objective Last 24 Hour Vital Signs Date Time Temp Pulse Resp B/P (MAP) Pulse Ox O2 Delivery O2 Flow Rate FiO2 12/28/17 12:00 97.5 67 20 124/73 96 Nasal Cannula 2.0 97.5 12/28/17 11:53 64 12/28/17 08:16 80 18 97 Nasal Cannula 2.0 28 12/28/17 08:00 85 12/28/17 08:00 97.0 90 20 135/83 97 Nasal Cannula 2.0 97.0 12/28/17 07:58 Nasal Cannula 2.0 28 12/28/17 07:50 74 18 96 Nasal Cannula 2.0 28 12/28/17 07:45 96 Nasal Cannula 2.0 28 12/28/17 04:00 97.5 61 20 105/60 97 Nasal Cannula 2.0 97.5 12/28/17 04:00 65 12/28/17 00:00 57 12/28/17 00:00 98.2 58 20 107/74 97 Nasal Cannula 2.0 98.2 12/27/17 22:43 Nasal Cannula 12/27/17 22:43 Nasal Cannula 12/27/17 20:00 84 12/27/17 20:00 98.0 76 20 108/78 96 Nasal Cannula 2.0 98.0 12/27/17 19:47 88 18 97 Nasal Cannula 2.0 28 12/27/17 19:47 88 18 97 Nasal Cannula 2.0 28 12/27/17 19:25 85 18 95 Nasal Cannula 2.0 28 12/27/17 19:24 Nasal Cannula 2.0 28 12/27/17 19:24 95 Nasal Cannula 2.0 28 12/27/17 19:23 85 18 95 Nasal Cannula 2.0 28 12/27/17 16:00 79 12/27/17 16:00 97.9 76 20 125/79 95 Nasal Cannula 2.0 97.9 General Appearance: no apparent distress EENT: PERRL/EOMI Neck: normal alignment Rhythm: NSR Cardiovascular: regular rhythm Respiratory/Chest: crackles/rales Abdomen: soft Extremities: no swelling Neurologic: dark room attendant II-XII grossly normal Intake and Output 12/27/17 12/28/17 19:00 07:00 Intake Total 1110.08 ml 230 ml Output Total 650 ml Balance 460.08 ml 230 ml Intake Oral 780 ml 120 ml IV Total 330.08 ml 110 ml Output Urine Total 650 ml # Voids 3 3 # Bowel Movements 4 1 Laboratory Tests Test 12/27/17 16:53 12/28/17 03:50 Sodium Level 139 MMOL/L (136-145) 139 MMOL/L (136-145) Potassium Level 3.5 MMOL/L (3.5-5.1) 3.5 MMOL/L (3.5-5.1) Chloride Level 106 MMOL/L (98-107) 107 MMOL/L (98-107) Carbon Dioxide Level 25 MMOL/L (21-32) 26 MMOL/L (21-32) Anion Gap 8 mmol/L (5-15) 6 mmol/L (5-15) Blood Urea Nitrogen 11 mg/dL (7-18) 14 mg/dL (7-18) Creatinine 1.0 MG/DL (0.55-1.30) 1.0 MG/DL (0.55-1.30) Estimat Glomerular Filtration Rate > 60 mL/min (>60) > 60 mL/min (>60) Glucose Level 123 MG/DL (74-106) H 129 MG/DL (74-106) H Calcium Level 9.3 MG/DL (8.5-10.1) 9.1 MG/DL (8.5-10.1) White Blood Count 21.1 K/UL (4.8-10.8) H Red Blood Count 3.74 M/UL (4.20-5.40) L Hemoglobin 10.8 G/DL (12.0-16.0) L Hematocrit 31.4 % (37.0-47.0) L Mean Corpuscular Volume 84 FL (80-99) Mean Corpuscular Hemoglobin 29.0 PG (27.0-31.0) Mean Corpuscular Hemoglobin Concent 34.5 G/DL (32.0-36.0) Red Cell Distribution Width 13.1 % (11.6-14.8) Platelet Count 286 K/UL (150-450) Mean Platelet Volume 6.7 FL (6.5-10.1) Neutrophils (%) (Auto) % (45.0-75.0) Lymphocytes (%) (Auto) % (20.0-45.0) Monocytes (%) (Auto) % (1.0-10.0) Eosinophils (%) (Auto) % (0.0-3.0) Basophils (%) (Auto) % (0.0-2.0) Differential Total Cells Counted 100 Neutrophils % (Manual) 89 % (45-75) H Lymphocytes % (Manual) 9 % (20-45) L Monocytes % (Manual) 2 % (1-10) Eosinophils % (Manual) 0 % (0-3) Basophils % (Manual) 0 % (0-2) Band Neutrophils 0 % (0-8) Platelet Estimate Adequate Platelet Morphology Normal Hypochromasia 1+ Lactic Acid Level 1.30 mmol/L (0.66-2.22) Total Bilirubin 0.4 MG/DL (0.2-1.0) Aspartate Amino Transf (AST/SGOT) 17 U/L (15-37) Alanine Aminotransferase (ALT/SGPT) 21 U/L (12-78) Alkaline Phosphatase 58 U/L (46-116) Pro-B-Type Natriuretic Peptide 706 pg/mL (0-125) H Total Protein 6.8 G/DL (6.4-8.2) Albumin 2.1 G/DL (3.4-5.0) L Globulin 4.7 g/dL Albumin/Globulin Ratio 0.4 (1.0-2.7) L Microbiology Date/Time Source Procedure Growth Status 12/26/17 13:05 Blood Blood Culture - Preliminary Streptococcus Species Resulted 12/26/17 13:00 Blood Blood Culture - Preliminary Streptococcus Species Resulted 12/27/17 04:00 Sputum Gram Stain - Final Resulted 12/27/17 04:00 Sputum Sputum Culture - Preliminary NORMAL UPPER RESPIRATORY KALINA PRESENT Resulted 12/26/17 13:00 Nasal Nares Influenza Types A,B Antigen (JOHN) - Final Complete 12/26/17 20:00 Stool Clostridium difficile Toxin Assay - Final Complete ORQUIDEA CHAVES Dec 28, 2017 13:56
[2017-12-28] MEDS: Azithromycin 250mg tab ORAL SCH (14:36)
--- NOTE | 2017-12-28 14:53 | Cardiology Report ---
APPROVED REPORT EXAM: Two-dimensional and M-mode echocardiogram with Doppler and color Doppler. INDICATION LV FUNCTION M-Mode DIMENSIONS IVSd1.2 (0.7-1.1cm)Left Atrium (MM)2.4 (1.6-4.0cm) LVDd4.0 (3.5-5.6cm)Aortic Root3.6 (2.0-3.7cm) PWd1.4 (0.7-1.1cm)Aortic Cusp Exc.1.8 (1.5-2.0cm) IVSs1.7 cm LVDs3.2 (2.5-4.0cm) PWs1.7 cm Technically difficult study due to poor acoustical windows. Normal left ventricular chamber size. Mild Global left ventricular hypokinesis. Left ventricular ejection fraction estimated to be 45-50 %. Mild left ventricular hypertrophy. No evidence of pericardial effusion. All other cardiac chamber sizes is within normal limits. Focal aortic valve sclerosis with adequate cusp excursion. Thickened mitral valve leaflets with normal excursion. Mitral annulus and aortic root calcification. Pulmonic valve not well visualized. Normal tricuspid valve structure. IVC dilated at 2.8 cm and collapsing with respiration . A color flow and spectral Doppler study was performed and revealed: No aortic insufficiency. Mild mitral regurgitation . Mild tricuspid regurgitation. Tricuspid systolic velocities suggests peak right ventricular systolic pressure of 39 mmHg, consistent with mild pulmonary hypertension. No Pulmonic regurgitation present.
[2017-12-28] MEDS ORDERED: Nitroglycerin Subl 0.4mg tab SL PRN (15:00)
[2017-12-28 16:00] VITALS: BP 118/74
--- NOTE | 2017-12-28 16:30 | Cardiology Report ---
APPROVED REPORT EKG Measurement Heart [id number] ID [id number] Sinus tachycardia with short ID Nonspecific ST and T wave abnormality Abnormal ECG
[2017-12-28] MEDS ORDERED: NS 275ml ONE (16:31)
[2017-12-28] MEDS ORDERED: Tubing IV Secondary IV ONE (16:31)
[2017-12-28] MEDS ORDERED: Ampicillin/Sulbactam Sod 3 GM in NS 110 ML IVPB SCH (18:00)
[2017-12-28] MEDS ORDERED: Vancomycin 1.5gm/D5W 250ml 250 ML IVPB SCH (18:00)
[2017-12-28] MEDS: Ampicillin/Sulbactam Sod 3 GM in NS 110 ML IVPB SCH (18:12)
[2017-12-28] MEDS ORDERED: Promethazine/Codeine 5ml UD ORAL PRN (18:15)
[2017-12-28] MEDS ORDERED: Morphine Sulfate 2mg/ml Inj IVP PRN (18:15)
[2017-12-28] MEDS ORDERED: LORazepam Inj 2mg/ml 1ml IV PRN (18:15)
[2017-12-28 20:00] VITALS: BP 130/69
[2017-12-29] MEDS: Ampicillin/Sulbactam Sod 3 GM in NS 110 ML IVPB SCH ×4 (01:06→18:05)
[2017-12-29] MEDS: Vancomycin 1gm in Dextrose 275ml IVPB SCH ×2 (03:03→09:52)
[2017-12-29 04:00] VITALS: BP 125/79
[2017-12-29 08:00] VITALS: BP 117/74
[2017-12-29 08:57] LABS: BASOPHILS % (AUTO) 1.1 % (0.0-2.0); HEMATOCRIT 34.2 % (37.0-47.0); HEMOGLOBIN 11.6 G/DL (12.0-16.0); LYMPHOCYTES % (AUTO) 8.3 % (20.0-45.0); MEAN CORPUSCULAR VOLUME 85 FL (80-99); MONOCYTES % (AUTO) 5.8 % (1.0-10.0); NEUTROPHILS % (AUTO) 84.7 % (45.0-75.0); PLATELET COUNT 333 K/UL (150-450); RED BLOOD COUNT 4.04 M/UL (4.20-5.40); RED CELL DISTRIBUTION WIDTH 13.5 % (11.6-14.8); WHITE BLOOD COUNT 14.2 K/UL (4.8-10.8)
[2017-12-29 09:15] LABS: ALANINE AMINOTRANSFERASE 27 U/L (12-78); ALBUMIN 2.3 G/DL (3.4-5.0); ALBUMIN/GLOBULIN RATIO 0.5 (1.0-2.7); ALKALINE PHOSPHATASE 56 U/L (46-116); ANION GAP 8 mmol/L (5-15); ASPARTATE AMINO TRANSFERASE 16 U/L (15-37); BILIRUBIN,TOTAL 0.5 MG/DL (0.2-1.0); BLOOD UREA NITROGEN 17 mg/dL (7-18); CALCIUM 9.2 MG/DL (8.5-10.1); CARBON DIOXIDE 27 MMOL/L (21-32); CHLORIDE 106 MMOL/L (98-107); PHOSPHORUS 2.8 MG/DL (2.5-4.9); POTASSIUM 3.4 MMOL/L (3.5-5.1); SODIUM 141 MMOL/L (136-145)
[2017-12-29] MEDS: Theophylline ER 100mg ORAL SCH ×2 (09:52→20:58)
[2017-12-29] MEDS: Heparin 5000 units/ml inj SUBQ SCH ×2 (09:54→21:00)
[2017-12-29] MEDS: Albuterol/Ipratropium 3ml neb HHN PRN (10:04)
--- NOTE | 2017-12-29 10:25 | Infectious Diseases Prog Note ---
Assessment/Plan Assessment/Plan Assessment: PNA, CAP ( Pneumococcal ) -CXR: Increased patchy airspace disease in the left base with increasing airspace disease in the right upper lobe. This is consistent with pneumonia -Influenza A/B neg Pneumococcal bacteremia Recent sinus inefction Leukocytosis improving -afebrile Lactic acidosis Hx of Asthma Hx of sinuitis Plan: -cont IV Unasyn ( AB Rx d # 4 )and DC azithromycin d# 4 ;DC Vanco d # 2 upon discharge can be transition to PO Augmentin x 3 d 12/27 SP Zosyn d# 2 -f/u cx -Monitor CBC/BMP, temperatures -aspiration precautions Subjective Constitutional: Denies: no symptoms, fever, chills, fatigue, anorexia, drenching sweats, other Allergies: Coded Allergies: IBUPROFEN (Verified Allergy, Unknown, 12/26/17) TETRACYCLINE (Verified Allergy, Unknown, 12/26/17) Objective Vital Signs Last 24 Hour Vital Signs Date Time Temp Pulse Resp B/P (MAP) Pulse Ox O2 Delivery O2 Flow Rate FiO2 12/29/17 10:11 83 18 97 Room Air 12/29/17 10:06 75 18 95 Room Air 12/29/17 08:51 Room Air 12/29/17 08:50 96 Room Air 12/29/17 08:00 97.8 87 19 117/74 97 Nasal Cannula 2.0 97.8 12/29/17 04:00 98.1 63 20 125/79 96 Nasal Cannula 2.0 98.1 12/28/17 23:25 98 Nasal Cannula 3.0 32 12/28/17 23:25 Nasal Cannula 3.0 32 12/28/17 20:00 97.5 70 18 130/69 92 Nasal Cannula 3.0 97.5 12/28/17 16:00 98.3 74 20 118/74 93 Room Air 98.3 12/28/17 16:00 93 Room Air 12/28/17 12:00 97.5 67 20 124/73 96 Nasal Cannula 2.0 97.5 12/28/17 11:53 64 Height (Feet): 6 Height (Inches): 11.00 Weight (Pounds): 254 HEENT: mucous membranes moist Respiratory/Chest: normal breath sounds Cardiovascular: regularly irregular Abdomen: soft, non tender Microbiology Date/Time Source Procedure Growth Status 12/26/17 13:05 Blood Blood Culture - Preliminary Streptococcus Pneumoniae Resulted 12/26/17 13:00 Blood Blood Culture - Preliminary Streptococcus Pneumoniae Resulted 12/27/17 04:00 Sputum Gram Stain - Final Complete 12/27/17 04:00 Sputum Culture - Final Yanni Albicans Usual Upper Respiratory Charlee Complete 12/26/17 13:00 Nasal Nares Influenza Types A,B Antigen (JOHN) - Final Complete 12/26/17 20:00 Stool Clostridium difficile Toxin Assay - Final Complete Laboratory Tests Test 12/29/17 08:10 White Blood Count 14.2 K/UL (4.8-10.8) H Red Blood Count 4.04 M/UL (4.20-5.40) L Hemoglobin 11.6 G/DL (12.0-16.0) L Hematocrit 34.2 % (37.0-47.0) L Mean Corpuscular Volume 85 FL (80-99) Mean Corpuscular Hemoglobin 28.7 PG (27.0-31.0) Mean Corpuscular Hemoglobin Concent 33.9 G/DL (32.0-36.0) Red Cell Distribution Width 13.5 % (11.6-14.8) Platelet Count 333 K/UL (150-450) Mean Platelet Volume 6.7 FL (6.5-10.1) Neutrophils (%) (Auto) 84.7 % (45.0-75.0) H Lymphocytes (%) (Auto) 8.3 % (20.0-45.0) L Monocytes (%) (Auto) 5.8 % (1.0-10.0) Eosinophils (%) (Auto) 0.0 % (0.0-3.0) Basophils (%) (Auto) 1.1 % (0.0-2.0) Sodium Level 141 MMOL/L (136-145) Potassium Level 3.4 MMOL/L (3.5-5.1) L Chloride Level 106 MMOL/L (98-107) Carbon Dioxide Level 27 MMOL/L (21-32) Anion Gap 8 mmol/L (5-15) Blood Urea Nitrogen 17 mg/dL (7-18) Creatinine 1.0 MG/DL (0.55-1.30) Estimat Glomerular Filtration Rate > 60 mL/min (>60) Glucose Level 104 MG/DL (74-106) Calcium Level 9.2 MG/DL (8.5-10.1) Phosphorus Level 2.8 MG/DL (2.5-4.9) Magnesium Level 2.2 MG/DL (1.8-2.4) Total Bilirubin 0.5 MG/DL (0.2-1.0) Aspartate Amino Transf (AST/SGOT) 16 U/L (15-37) Alanine Aminotransferase (ALT/SGPT) 27 U/L (12-78) Alkaline Phosphatase 56 U/L (46-116) C-Reactive Protein, Quantitative 12.4 mg/dL (0.00-0.90) H Total Protein 7.2 G/DL (6.4-8.2) Albumin 2.3 G/DL (3.4-5.0) L Globulin 4.9 g/dL Albumin/Globulin Ratio 0.5 (1.0-2.7) L Current Medications Medications (Trade) Dose Ordered Sig/Renee Route PRN Reason Start Time Stop Time Status Last Admin Dose Admin Acetaminophen (Tylenol) 650 mg Q6H PRN ORAL Mild Pain/Temp > 100.5 12/28/17 15:30 01/25/18 21:29 Albuterol/ Ipratropium (Albuterol/ Ipratropium) 3 ml Q4H PRN HHN dyspnea 12/28/17 18:15 12/31/17 18:14 12/29/17 10:04 Ampicillin Sodium/ Sulbactam Sodium 3 gm/Sodium Chloride 110 ml @ 220 mls/hr Q6HR IVPB 12/28/17 18:00 01/04/18 17:59 12/29/17 05:42 Azithromycin (Zithromax) 500 mg DAILY@1400 ORAL 12/29/17 14:00 01/03/18 13:59 Dextrose (Dextrose 50%) STAT PRN IV Hypoglycemia 12/28/17 18:15 01/25/18 18:14 Heparin Sodium (Porcine) (Heparin 5000 units/ml) 5,000 units EVERY 12 HOURS SUBQ 12/28/17 21:00 01/25/18 20:59 12/29/17 09:54 Lorazepam (Ativan 2mg/ml 1ml) 0.5 mg Q4H PRN IV For Anxiety 12/28/17 18:15 01/02/18 18:14 Morphine Sulfate (Morphine Sulfate) 2 mg Q4H PRN IVP severe pain 7-10 12/28/17 18:15 01/02/18 18:14 Nitroglycerin (Ntg) 0.4 mg Q5M X 3 DOSES PRN SL Prn Chest Pain 12/28/17 15:00 01/25/18 18:14 Ondansetron HCl (Zofran) 4 mg Q6H PRN IVP Nausea & Vomiting 12/28/17 18:15 01/25/18 18:14 Promethazine HCl/ Codeine (Phenergan with Codeine) 5 ml Q6H PRN ORAL cough 12/28/17 18:15 01/25/18 18:14 Temazepam (Restoril) 15 mg HSPRN PRN ORAL Insomnia 12/28/17 18:15 01/02/18 18:14 Theophylline (Rich-Dur) 100 mg EVERY 12 HOURS ORAL 12/28/17 21:00 01/25/18 20:59 12/29/17 09:52 Vancomycin HCl (Vanco rx to dose) 1 ea DAILYPRN PRN MISC Per rx protocol 12/28/17 16:30 01/27/18 16:29 Vancomycin HCl 1 gm/Dextrose 275 ml @ 183.708 mls/hr Q8HR@0200,1000,1800 IVPB 12/29/17 02:00 01/03/18 01:59 12/29/17 09:52 Vancomycin HCl/ Dextrose 250 ml @ 125 mls/hr ONCE IVPB 12/28/17 18:00 01/02/18 17:59 12/28/17 19:18 KULDIP DAS M.D. Dec 29, 2017 10:25
[2017-12-29 12:00] VITALS: BP 121/75
--- NOTE | 2017-12-29 12:24 | Diagnostic Imaging Report ---
Indication: Dyspnea Comparison: 12/28/2017 A single view chest radiograph was obtained. Findings: Right upper lobe infiltrate again demonstrated with slight improved appearance. Small left basal infiltrate also noted relatively unchanged. Heart size is stable. IMPRESSION: Bilateral infiltrates. The right upper lobe infiltrate appears improved
[2017-12-29] MEDS ORDERED: Azithromycin 250mg tab ORAL SCH (14:00)
--- NOTE | 2017-12-29 15:43 | Pulmonology Progress Note ---
Assessment/Plan Problems: (1) Pneumonia (2) Respiratory distress Assessment/Plan cxr reviewed, RML infiltrate with sharp wedges, improivng continue abx check cultures med/surg ID evaluation appreciated. Subjective ROS Limited/Unobtainable: No Constitutional: Reports: no symptoms HEENT: Repors: no symptoms Respiratory: Reports: wheezing Allergies: Coded Allergies: IBUPROFEN (Verified Allergy, Unknown, 12/26/17) TETRACYCLINE (Verified Allergy, Unknown, 12/26/17) Objective Last 24 Hour Vital Signs Date Time Temp Pulse Resp B/P (MAP) Pulse Ox O2 Delivery O2 Flow Rate FiO2 12/29/17 12:00 98.3 75 19 121/75 96 Room Air 98.3 12/29/17 10:11 83 18 97 Room Air 12/29/17 10:06 75 18 95 Room Air 12/29/17 08:51 Room Air 12/29/17 08:50 96 Room Air 12/29/17 08:00 97.8 87 19 117/74 97 Nasal Cannula 2.0 97.8 12/29/17 04:00 98.1 63 20 125/79 96 Nasal Cannula 2.0 98.1 12/28/17 23:25 98 Nasal Cannula 3.0 32 12/28/17 23:25 Nasal Cannula 3.0 32 12/28/17 20:00 97.5 70 18 130/69 92 Nasal Cannula 3.0 97.5 12/28/17 16:00 98.3 74 20 118/74 93 Room Air 98.3 12/28/17 16:00 93 Room Air Intake and Output 12/28/17 12/29/17 19:00 07:00 Intake Total 110 ml 500 ml Output Total 1000 ml Balance 110 ml -500 ml Intake Oral 500 ml IV Total 110 ml Output Urine Total 1000 ml # Voids 1 # Bowel Movements 2 General Appearance: WD/WN HEENT: normocephalic, atraumatic Respiratory/Chest: chest wall non-tender, normal breath sounds Breasts: no masses Cardiovascular: regular rhythm Abdomen: soft, non tender, no organomegaly Genitourinary: normal external genitalia Microbiology Date/Time Source Procedure Growth Status 12/27/17 04:00 Sputum Gram Stain - Final Complete 12/27/17 04:00 Sputum Culture - Final Yanni Albicans Usual Upper Respiratory Charlee Complete 12/26/17 20:00 Stool Clostridium difficile Toxin Assay - Final Complete Laboratory Tests 12/29/17 08:10: White Blood Count 14.2H, Red Blood Count 4.04L, Hemoglobin 11.6L, Hematocrit 34.2L, Mean Corpuscular Volume 85, Mean Corpuscular Hemoglobin 28.7, Mean Corpuscular Hemoglobin Concent 33.9, Red Cell Distribution Width 13.5, Platelet Count 333, Mean Platelet Volume 6.7, Neutrophils (%) (Auto) 84.7H, Lymphocytes ( %) (Auto) 8.3L, Monocytes (%) (Auto) 5.8, Eosinophils (%) (Auto) 0.0, Basophils (%) (Auto) 1.1, Sodium Level 141, Potassium Level 3.4L, Chloride Level 106, Carbon Dioxide Level 27, Anion Gap 8, Blood Urea Nitrogen 17, Creatinine 1.0, Estimat Glomerular Filtration Rate > 60, Glucose Level 104, Calcium Level 9.2, Phosphorus Level 2.8, Magnesium Level 2.2, Total Bilirubin 0.5, Aspartate Amino Transf (AST/SGOT) 16, Alanine Aminotransferase (ALT/SGPT) 27, Alkaline Phosphatase 56, C-Reactive Protein, Quantitative 12.4H, Total Protein 7.2, Albumin 2.3L, Globulin 4.9, Albumin/Globulin Ratio 0.5L Current Medications Medications (Trade) Dose Ordered Sig/Renee Route PRN Reason Start Time Stop Time Status Last Admin Dose Admin Acetaminophen (Tylenol) 650 mg Q6H PRN ORAL Mild Pain/Temp > 100.5 12/28/17 15:30 01/25/18 21:29 Albuterol/ Ipratropium (Albuterol/ Ipratropium) 3 ml Q4H PRN HHN dyspnea 12/28/17 18:15 12/31/17 18:14 12/29/17 10:04 Ampicillin Sodium/ Sulbactam Sodium 3 gm/Sodium Chloride 110 ml @ 220 mls/hr Q6HR IVPB 12/28/17 18:00 01/04/18 17:59 12/29/17 12:33 Dextrose (Dextrose 50%) STAT PRN IV Hypoglycemia 12/28/17 18:15 01/25/18 18:14 Heparin Sodium (Porcine) (Heparin 5000 units/ml) 5,000 units EVERY 12 HOURS SUBQ 12/28/17 21:00 01/25/18 20:59 2/26/18 09:54 Lorazepam (Ativan 2mg/ml 1ml) 0.5 mg Q4H PRN IV For Anxiety 12/28/17 18:15 01/02/18 18:14 Morphine Sulfate (Morphine Sulfate) 2 mg Q4H PRN IVP severe pain 7-10 12/28/17 18:15 01/02/18 18:14 Nitroglycerin (Ntg) 0.4 mg Q5M X 3 DOSES PRN SL Prn Chest Pain 12/28/17 15:00 01/25/18 18:14 Ondansetron HCl (Zofran) 4 mg Q6H PRN IVP Nausea & Vomiting 12/28/17 18:15 01/25/18 18:14 Potassium Chloride (K-Dur) 40 meq ONCE ONCE ORAL 12/29/17 16:00 12/29/17 16:01 Promethazine HCl/ Codeine (Phenergan with Codeine) 5 ml Q6H PRN ORAL cough 12/28/17 18:15 01/25/18 18:14 Temazepam (Restoril) 15 mg HSPRN PRN ORAL Insomnia 12/28/17 18:15 01/02/18 18:14 Theophylline (Rich-Dur) 100 mg EVERY 12 HOURS ORAL 12/28/17 21:00 01/25/18 20:59 12/29/17 09:52 RITU RODRIGUEZ Dec 29, 2017 15:43
[2017-12-29 15:53] VITALS: BP 117/74
[2017-12-29 20:00] VITALS: BP 122/68
[2017-12-30] VITALS: BP 127/72
[2017-12-30] MEDS: Ampicillin/Sulbactam Sod 3 GM in NS 110 ML IVPB SCH ×4 (00:15→17:01)
[2017-12-30 04:00] VITALS: BP 118/71
[2017-12-30] MEDS: Albuterol/Ipratropium 3ml neb HHN PRN (06:45)
[2017-12-30 07:41] LABS: BASOPHILS % (AUTO) 2.1 % (0.0-2.0); EOSINOPHILS % (AUTO) 0.4 % (0.0-3.0); HEMATOCRIT 31.7 % (37.0-47.0); HEMOGLOBIN 10.7 G/DL (12.0-16.0); LYMPHOCYTES % (AUTO) 23.6 % (20.0-45.0); MEAN CORPUSCULAR VOLUME 85 FL (80-99); MONOCYTES % (AUTO) 5.2 % (1.0-10.0); NEUTROPHILS % (AUTO) 68.6 % (45.0-75.0); PLATELET COUNT 346 K/UL (150-450); RED BLOOD COUNT 3.75 M/UL (4.20-5.40); RED CELL DISTRIBUTION WIDTH 13.4 % (11.6-14.8); WHITE BLOOD COUNT 10.8 K/UL (4.8-10.8)
[2017-12-30 08:00] VITALS: BP 113/71
[2017-12-30 08:03] LABS: ALANINE AMINOTRANSFERASE 23 U/L (12-78); ALBUMIN/GLOBULIN RATIO 0.5 (1.0-2.7); ALKALINE PHOSPHATASE 45 U/L (46-116); ANION GAP 5 mmol/L (5-15); ASPARTATE AMINO TRANSFERASE 12 U/L (15-37); BILIRUBIN,TOTAL 0.5 MG/DL (0.2-1.0); BLOOD UREA NITROGEN 11 mg/dL (7-18); CALCIUM 8.6 MG/DL (8.5-10.1); CARBON DIOXIDE 30 MMOL/L (21-32); CHLORIDE 109 MMOL/L (98-107); CREATININE 0.9 MG/DL (0.55-1.30); PHOSPHORUS 3.2 MG/DL (2.5-4.9); POTASSIUM 3.5 MMOL/L (3.5-5.1); SODIUM 144 MMOL/L (136-145)
[2017-12-30] MEDS: Theophylline ER 100mg ORAL SCH ×2 (08:07→21:00)
[2017-12-30] MEDS: Heparin 5000 units/ml inj SUBQ SCH ×2 (08:13→21:02)
--- NOTE | 2017-12-30 08:35 | Infectious Diseases Prog Note ---
Assessment/Plan Assessment/Plan Assessment: PNA, CAP ( Pneumococcal ) -CXR: Bilateral infiltrates. The right upper lobe infiltrate appears improved -Influenza A/B neg Pneumococcal bacteremia Recent sinus infection Leukocytosis , SP -afebrile Lactic acidosis Hx of Asthma Hx of sinuitis Plan: -cont IV Unasyn ( AB Rx d # 5 ) upon discharge can be transition to PO Augmentin x 3 d 12/29 SP azithromycin d# 4 , Vanco d # 2 12/27 SP Zosyn d# 2 -f/u cx -Monitor CBC/BMP, temperatures -aspiration precautions Subjective Constitutional: Denies: no symptoms, fever, chills, fatigue, anorexia, drenching sweats, other Allergies: Coded Allergies: IBUPROFEN (Verified Allergy, Unknown, 12/26/17) TETRACYCLINE (Verified Allergy, Unknown, 12/26/17) Objective Vital Signs Last 24 Hour Vital Signs Date Time Temp Pulse Resp B/P (MAP) Pulse Ox O2 Delivery O2 Flow Rate FiO2 12/30/17 08:00 97.8 85 18 113/71 94 Room Air 97.8 12/30/17 07:01 86 18 98 Room Air 12/30/17 06:51 Room Air 21 12/30/17 06:50 82 20 98 Room Air 21 12/30/17 06:50 98 Room Air 21 12/30/17 04:00 97.2 70 18 118/71 95 Room Air 97.2 12/30/17 00:00 97.5 72 18 127/72 95 Room Air 97.5 12/29/17 20:00 97.1 66 18 122/68 94 Room Air 97.1 12/29/17 19:09 96 Room Air 21 12/29/17 19:09 Room Air 21 12/29/17 15:53 98.8 69 19 117/74 95 Room Air 98.8 12/29/17 12:00 98.3 75 19 121/75 96 Room Air 98.3 12/29/17 10:11 83 18 97 Room Air 12/29/17 10:06 75 18 95 Room Air 12/29/17 08:51 Room Air 12/29/17 08:50 96 Room Air Height (Feet): 6 Height (Inches): 11.00 Weight (Pounds): 253 HEENT: anicteric Respiratory/Chest: no accessory muscle use Cardiovascular: regularly irregular Abdomen: no organomegaly Microbiology Date/Time Source Procedure Growth Status 12/28/17 18:46 Blood Blood Culture - Preliminary NO GROWTH AFTER 24 HOURS Resulted 12/28/17 18:35 Blood Blood Culture - Preliminary NO GROWTH AFTER 24 HOURS Resulted Laboratory Tests Test 12/30/17 06:10 White Blood Count 10.8 K/UL (4.8-10.8) Red Blood Count 3.75 M/UL (4.20-5.40) L Hemoglobin 10.7 G/DL (12.0-16.0) L Hematocrit 31.7 % (37.0-47.0) L Mean Corpuscular Volume 85 FL (80-99) Mean Corpuscular Hemoglobin 28.5 PG (27.0-31.0) Mean Corpuscular Hemoglobin Concent 33.7 G/DL (32.0-36.0) Red Cell Distribution Width 13.4 % (11.6-14.8) Platelet Count 346 K/UL (150-450) Mean Platelet Volume 5.7 FL (6.5-10.1) L Neutrophils (%) (Auto) 68.6 % (45.0-75.0) Lymphocytes (%) (Auto) 23.6 % (20.0-45.0) Monocytes (%) (Auto) 5.2 % (1.0-10.0) Eosinophils (%) (Auto) 0.4 % (0.0-3.0) Basophils (%) (Auto) 2.1 % (0.0-2.0) H Erythrocyte Sedimentation Rate Pending Sodium Level 144 MMOL/L (136-145) Potassium Level 3.5 MMOL/L (3.5-5.1) Chloride Level 109 MMOL/L (98-107) H Carbon Dioxide Level 30 MMOL/L (21-32) Anion Gap 5 mmol/L (5-15) Blood Urea Nitrogen 11 mg/dL (7-18) Creatinine 0.9 MG/DL (0.55-1.30) Estimat Glomerular Filtration Rate > 60 mL/min (>60) Glucose Level 80 MG/DL (74-106) Calcium Level 8.6 MG/DL (8.5-10.1) Phosphorus Level 3.2 MG/DL (2.5-4.9) Magnesium Level 1.9 MG/DL (1.8-2.4) Total Bilirubin 0.5 MG/DL (0.2-1.0) Aspartate Amino Transf (AST/SGOT) 12 U/L (15-37) L Alanine Aminotransferase (ALT/SGPT) 23 U/L (12-78) Alkaline Phosphatase 45 U/L (46-116) L C-Reactive Protein, Quantitative 6.2 mg/dL (0.00-0.90) H Total Protein 6.1 G/DL (6.4-8.2) L Albumin 2.0 G/DL (3.4-5.0) L Globulin 4.1 g/dL Albumin/Globulin Ratio 0.5 (1.0-2.7) L Current Medications Medications (Trade) Dose Ordered Sig/Renee Route PRN Reason Start Time Stop Time Status Last Admin Dose Admin Acetaminophen (Tylenol) 650 mg Q6H PRN ORAL Mild Pain/Temp > 100.5 12/28/17 15:30 01/25/18 21:29 Albuterol/ Ipratropium (Albuterol/ Ipratropium) 3 ml Q4H PRN HHN dyspnea 12/28/17 18:15 12/31/17 18:14 12/30/17 06:45 Ampicillin Sodium/ Sulbactam Sodium 3 gm/Sodium Chloride 110 ml @ 220 mls/hr Q6HR IVPB 12/28/17 18:00 01/04/18 17:59 12/30/17 06:16 Dextrose (Dextrose 50%) STAT PRN IV Hypoglycemia 12/28/17 18:15 01/25/18 18:14 Heparin Sodium (Porcine) (Heparin 5000 units/ml) 5,000 units EVERY 12 HOURS SUBQ 12/28/17 21:00 01/25/18 20:59 12/30/17 08:13 Lorazepam (Ativan 2mg/ml 1ml) 0.5 mg Q4H PRN IV For Anxiety 12/28/17 18:15 01/02/18 18:14 Morphine Sulfate (Morphine Sulfate) 2 mg Q4H PRN IVP severe pain 7-10 12/28/17 18:15 01/02/18 18:14 Nitroglycerin (Ntg) 0.4 mg Q5M X 3 DOSES PRN SL Prn Chest Pain 12/28/17 15:00 01/25/18 18:14 Ondansetron HCl (Zofran) 4 mg Q6H PRN IVP Nausea & Vomiting 12/28/17 18:15 01/25/18 18:14 Promethazine HCl/ Codeine (Phenergan with Codeine) 5 ml Q6H PRN ORAL cough 12/28/17 18:15 01/25/18 18:14 Temazepam (Restoril) 15 mg HSPRN PRN ORAL Insomnia 12/28/17 18:15 01/02/18 18:14 Theophylline (Rich-Dur) 100 mg EVERY 12 HOURS ORAL 12/28/17 21:00 01/25/18 20:59 12/30/17 08:07 KULDIP DAS M.D. Dec 30, 2017 08:35
[2017-12-30 12:00] VITALS: BP 119/72
--- NOTE | 2017-12-30 13:53 | Physician Query ---
--------- THIS DOCUMENT IS A PERMANENT PART OF THE MEDICAL RECORD --------- PLEASE COMPLETE DOCUMENT BEFORE SIGNING Dear RITU Mayberry Date: 12/30/17 Pest Locator/CDS Name: Elizabeth Washington Pest Locator / CDS Phone #[phone] Exercise your independent professional judgment when responding to the query. Questions asked do not imply a particular answer is desired or expected. We greatly appreciate your clarification on this issue. CLINICAL DOCUMENTATION STATES: "Sepsis": ED Notes (12/26/17) "Pneumonia","Leukocytosis", "Lactic acidosis" ID Consultation (12/27/17) CLINICAL FINDINGS SHOW: WBC: 16.1, 21.1, 14.2, Neutrophiles:89, Lymphocytes: 6, Lactic acid: 4.90, 6.20 , Blood Glucose: 146, 129, CRP: 12.4 HR: 120, 145, 140, BP: 94/77, 108/55 Chest X-Ray: Bilateral infiltrates IV ABx: Ampicillin/Sulbactam 3gm, Vancomycin 1gm, Zosyn 3.375gm Please clarify if Sepsis [] Ruled in or [] Ruled out Condition Present on Admission: [] Yes [] No []Clinically Undeterminable Please also document in your Progress Notes and/or Discharge Summary and indicate if the condition was present on admission. RITU Thoams Date/Time MTDD
[2017-12-30 16:00] VITALS: BP 124/68
[2017-12-30 20:00] VITALS: BP 121/74
--- NOTE | 2017-12-30 21:03 | Pulmonology Progress Note ---
Assessment/Plan Problems: (1) Pneumonia (2) Respiratory distress Assessment/Plan cxr reviewed, RML infiltrate with sharp wedges, improivng continue abx check cultures med/surg ID evaluation appreciated. Subjective Allergies: Coded Allergies: IBUPROFEN (Verified Allergy, Unknown, 12/26/17) TETRACYCLINE (Verified Allergy, Unknown, 12/26/17) Objective Last 24 Hour Vital Signs Date Time Temp Pulse Resp B/P (MAP) Pulse Ox O2 Delivery O2 Flow Rate FiO2 12/30/17 16:00 98.1 74 18 124/68 95 Room Air 98.1 12/30/17 12:00 99.1 88 20 119/72 94 Room Air 99.1 12/30/17 08:00 97.8 85 18 113/71 94 Room Air 97.8 12/30/17 07:01 86 18 98 Room Air 12/30/17 06:51 Room Air 21 12/30/17 06:50 82 20 98 Room Air 21 12/30/17 06:50 98 Room Air 21 12/30/17 04:00 97.2 70 18 118/71 95 Room Air 97.2 12/30/17 00:00 97.5 72 18 127/72 95 Room Air 97.5 Intake and Output 12/29/17 12/30/17 19:00 07:00 Intake Total 650 ml 600 ml Output Total 1200 ml Balance -550 ml 600 ml Intake Oral 650 ml 600 ml Output Urine Total 1200 ml # Voids 5 3 # Bowel Movements 3 General Appearance: WD/WN HEENT: atraumatic, anicteric Cardiovascular: normal peripheral pulses, normal rate Abdomen: normal bowel sounds, soft, non tender Genitourinary: normal external genitalia Extremities: no cyanosis Skin: no lesions Neurologic/Psychiatric: radiological technician II-XII grossly normal Microbiology Date/Time Source Procedure Growth Status 12/28/17 18:46 Blood Blood Culture - Preliminary NO GROWTH AFTER 24 HOURS Resulted 12/28/17 18:35 Blood Blood Culture - Preliminary NO GROWTH AFTER 24 HOURS Resulted Laboratory Tests 12/30/17 06:10: White Blood Count 10.8, Red Blood Count 3.75L, Hemoglobin 10.7L, Hematocrit 31.7L, Mean Corpuscular Volume 85, Mean Corpuscular Hemoglobin 28.5, Mean Corpuscular Hemoglobin Concent 33.7, Red Cell Distribution Width 13.4, Platelet Count 346, Mean Platelet Volume 5.7L, Neutrophils (%) (Auto) 68.6, Lymphocytes ( %) (Auto) 23.6, Monocytes (%) (Auto) 5.2, Eosinophils (%) (Auto) 0.4, Basophils (%) (Auto) 2.1H, Erythrocyte Sedimentation Rate 108H, Sodium Level 144, Potassium Level 3.5, Chloride Level 109H, Carbon Dioxide Level 30, Anion Gap 5, Blood Urea Nitrogen 11, Creatinine 0.9, Estimat Glomerular Filtration Rate > 60 , Glucose Level 80, Calcium Level 8.6, Phosphorus Level 3.2, Magnesium Level 1.9 , Total Bilirubin 0.5, Aspartate Amino Transf (AST/SGOT) 12L, Alanine Aminotransferase (ALT/SGPT) 23, Alkaline Phosphatase 45L, C-Reactive Protein, Quantitative 6.2H, Total Protein 6.1L, Albumin 2.0L, Globulin 4.1, Albumin/ Globulin Ratio 0.5L Current Medications Medications (Trade) Dose Ordered Sig/Renee Route PRN Reason Start Time Stop Time Status Last Admin Dose Admin Acetaminophen (Tylenol) 650 mg Q6H PRN ORAL Mild Pain/Temp > 100.5 12/28/17 15:30 01/25/18 21:29 Albuterol/ Ipratropium (Albuterol/ Ipratropium) 3 ml Q4H PRN HHN dyspnea 12/28/17 18:15 12/31/17 18:14 12/30/17 06:45 Ampicillin Sodium/ Sulbactam Sodium 3 gm/Sodium Chloride 110 ml @ 220 mls/hr Q6HR IVPB 12/28/17 18:00 01/04/18 17:59 12/30/17 17:01 Dextrose (Dextrose 50%) STAT PRN IV Hypoglycemia 12/28/17 18:15 01/25/18 18:14 Heparin Sodium (Porcine) (Heparin 5000 units/ml) 5,000 units EVERY 12 HOURS SUBQ 12/28/17 21:00 01/25/18 20:59 12/30/17 08:13 Lorazepam (Ativan 2mg/ml 1ml) 0.5 mg Q4H PRN IV For Anxiety 12/28/17 18:15 01/02/18 18:14 Morphine Sulfate (Morphine Sulfate) 2 mg Q4H PRN IVP severe pain 7-10 12/28/17 18:15 01/02/18 18:14 Nitroglycerin (Ntg) 0.4 mg Q5M X 3 DOSES PRN SL Prn Chest Pain 12/28/17 15:00 01/25/18 18:14 Ondansetron HCl (Zofran) 4 mg Q6H PRN IVP Nausea & Vomiting 12/28/17 18:15 01/25/18 18:14 Promethazine HCl/ Codeine (Phenergan with Codeine) 5 ml Q6H PRN ORAL cough 12/28/17 18:15 01/25/18 18:14 Temazepam (Restoril) 15 mg HSPRN PRN ORAL Insomnia 12/28/17 18:15 01/02/18 18:14 Theophylline (Rich-Dur) 100 mg EVERY 12 HOURS ORAL 12/28/17 21:00 01/25/18 20:59 12/30/17 08:07 RITU RODRIGUEZ Dec 30, 2017 20:56
[2017-12-31] VITALS: BP 107/70
[2017-12-31] MEDS: Ampicillin/Sulbactam Sod 3 GM in NS 110 ML IVPB SCH ×4 (00:03→19:14)
[2017-12-31] MEDS: Albuterol/Ipratropium 3ml neb HHN PRN ×2 (00:28→15:44)
[2017-12-31 04:00] VITALS: BP 105/74
[2017-12-31 09:03] VITALS: BP 97/62
[2017-12-31] MEDS: Theophylline ER 100mg ORAL SCH ×2 (09:50→21:35)
[2017-12-31] MEDS: Heparin 5000 units/ml inj SUBQ SCH ×2 (09:56→21:36)
--- NOTE | 2017-12-31 10:35 | Infectious Diseases Prog Note ---
Assessment/Plan Assessment/Plan Assessment: PNA, CAP ( Pneumococcal ) -CXR: Bilateral infiltrates. The right upper lobe infiltrate appears improved -Influenza A/B neg Pneumococcal bacteremia Recent sinus infection Leukocytosis , SP -afebrile Lactic acidosis Hx of Asthma Hx of sinuitis Plan: -cont IV Unasyn ( AB Rx d # 6 ) upon discharge can be transition to PO Augmentin x 4 d (Rx in chart) 12/29 SP azithromycin d# 4 , Vanco d # 2 12/27 SP Zosyn d# 2 -f/u cx ( Bl ) -Monitor CBC/BMP, temperatures -aspiration precautions Subjective Constitutional: Denies: no symptoms, fever, chills, fatigue, anorexia, drenching sweats, other Allergies: Coded Allergies: IBUPROFEN (Verified Allergy, Unknown, 12/26/17) TETRACYCLINE (Verified Allergy, Unknown, 12/26/17) Objective Vital Signs Last 24 Hour Vital Signs Date Time Temp Pulse Resp B/P (MAP) Pulse Ox O2 Delivery O2 Flow Rate FiO2 12/31/17 09:03 99.0 102 20 97/62 95 Room Air 99.0 12/31/17 06:43 Room Air 21 12/31/17 06:43 96 Room Air 21 12/31/17 04:00 97.4 100 18 105/74 97 Room Air 97.4 12/31/17 01:15 97.6 12/31/17 00:36 87 18 98 Room Air 12/31/17 00:28 84 20 94 Room Air 12/31/17 00:16 97.6 12/31/17 00:00 98.4 82 20 107/70 94 Room Air 98.4 12/30/17 23:02 98 Room Air 21 12/30/17 23:02 Room Air 21 12/30/17 20:00 97.6 91 18 121/74 93 97.6 12/30/17 16:00 98.1 74 18 124/68 95 Room Air 98.1 12/30/17 12:00 99.1 88 20 119/72 94 Room Air 99.1 Height (Feet): 6 Height (Inches): 11.00 Weight (Pounds): 254 HEENT: anicteric Respiratory/Chest: no respiratory distress Cardiovascular: normal rate Abdomen: non distended Microbiology Date/Time Source Procedure Growth Status 12/28/17 18:46 Blood Blood Culture - Preliminary NO GROWTH AFTER 48 HOURS Resulted 12/28/17 18:35 Blood Blood Culture - Preliminary NO GROWTH AFTER 48 HOURS Resulted Current Medications Medications (Trade) Dose Ordered Sig/Renee Route PRN Reason Start Time Stop Time Status Last Admin Dose Admin Acetaminophen (Tylenol) 650 mg Q6H PRN ORAL Mild Pain/Temp > 100.5 12/28/17 15:30 01/25/18 21:29 12/31/17 00:16 Albuterol/ Ipratropium (Albuterol/ Ipratropium) 3 ml Q4H PRN HHN dyspnea 12/28/17 18:15 12/31/17 18:14 12/31/17 00:28 Ampicillin Sodium/ Sulbactam Sodium 3 gm/Sodium Chloride 110 ml @ 220 mls/hr Q6HR IVPB 12/28/17 18:00 01/04/18 17:59 12/31/17 05:43 Dextrose (Dextrose 50%) STAT PRN IV Hypoglycemia 12/28/17 18:15 01/25/18 18:14 Heparin Sodium (Porcine) (Heparin 5000 units/ml) 5,000 units EVERY 12 HOURS SUBQ 12/28/17 21:00 01/25/18 20:59 12/31/17 09:56 Lorazepam (Ativan 2mg/ml 1ml) 0.5 mg Q4H PRN IV For Anxiety 12/28/17 18:15 01/02/18 18:14 Morphine Sulfate (Morphine Sulfate) 2 mg Q4H PRN IVP severe pain 7-10 12/28/17 18:15 01/02/18 18:14 Nitroglycerin (Ntg) 0.4 mg Q5M X 3 DOSES PRN SL Prn Chest Pain 12/28/17 15:00 01/25/18 18:14 Ondansetron HCl (Zofran) 4 mg Q6H PRN IVP Nausea & Vomiting 12/28/17 18:15 01/25/18 18:14 Promethazine HCl/ Codeine (Phenergan with Codeine) 5 ml Q6H PRN ORAL cough 12/28/17 18:15 01/25/18 18:14 Temazepam (Restoril) 15 mg HSPRN PRN ORAL Insomnia 12/28/17 18:15 01/02/18 18:14 Theophylline (Rich-Dur) 100 mg EVERY 12 HOURS ORAL 12/28/17 21:00 01/25/18 20:59 12/31/17 09:50 KULDIP DAS M.D. Dec 31, 2017 10:34
[2017-12-31 12:00] VITALS: BP 123/78
--- NOTE | 2017-12-31 14:38 | Pulmonology Progress Note ---
Assessment/Plan Assessment/Plan ASSESSMENT sepsis POA with bacteremia Strep pneumonia bacteremia bilateral PNA mild cardiomyopathy with EF 45% mild pulmonary HTN FIDELIA anemia hypokalemia PLAN OF CARE MS floor O2 HHN prn abx, ID follows fup blood cx prel negative trial of theophylline a/tussive prn inhalers on d/c CXR with small improvement will get CXR for am abx po Augmentin n dc as per ID recs( scripts in the chart) ECHO with EF 45-50% and RVSP of 39 c/w mild pulmonary HTBN hypoK corrected FIDELIA resolved monitor counts transfuse prn cardio follows medical management of CHF per cardio recs; currently not appeared to be decompensated dc plan for tomorrow case discussed and evaluated by supervising physician Subjective Allergies: Coded Allergies: IBUPROFEN (Verified Allergy, Unknown, 12/26/17) TETRACYCLINE (Verified Allergy, Unknown, 12/26/17) Subjective leukocytosis resolved, afebrile still congested, coughing, no wheezing, Objective Last 24 Hour Vital Signs Date Time Temp Pulse Resp B/P (MAP) Pulse Ox O2 Delivery O2 Flow Rate FiO2 12/31/17 12:00 99.1 92 20 123/78 93 Room Air 99.1 12/31/17 09:03 99.0 102 20 97/62 95 Room Air 99.0 12/31/17 06:43 Room Air 21 12/31/17 06:43 96 Room Air 21 12/31/17 04:00 97.4 100 18 105/74 97 Room Air 97.4 12/31/17 01:15 97.6 12/31/17 00:36 87 18 98 Room Air 12/31/17 00:28 84 20 94 Room Air 21 12/31/17 00:16 97.6 12/31/17 00:00 98.4 82 20 107/70 94 Room Air 98.4 12/30/17 23:02 98 Room Air 21 12/30/17 23:02 Room Air 21 12/30/17 20:00 97.6 91 18 121/74 93 97.6 12/30/17 16:00 98.1 74 18 124/68 95 Room Air 98.1 Intake and Output 12/30/17 12/31/17 19:00 07:00 Intake Total 850 ml 720 ml Balance 850 ml 720 ml Intake Oral 850 ml 720 ml # Voids 3 3 # Bowel Movements 1 Microbiology Date/Time Source Procedure Growth Status 12/28/17 18:46 Blood Blood Culture - Preliminary NO GROWTH AFTER 48 HOURS Resulted 12/28/17 18:35 Blood Blood Culture - Preliminary NO GROWTH AFTER 48 HOURS Resulted Current Medications Medications (Trade) Dose Ordered Sig/Renee Route PRN Reason Start Time Stop Time Status Last Admin Dose Admin Acetaminophen (Tylenol) 650 mg Q6H PRN ORAL Mild Pain/Temp > 100.5 12/28/17 15:30 01/25/18 21:29 12/31/17 00:16 Albuterol/ Ipratropium (Albuterol/ Ipratropium) 3 ml Q4H PRN HHN dyspnea 12/28/17 18:15 12/31/17 18:14 12/31/17 00:28 Ampicillin Sodium/ Sulbactam Sodium 3 gm/Sodium Chloride 110 ml @ 220 mls/hr Q6HR IVPB 12/28/17 18:00 01/04/18 17:59 12/31/17 12:45 Dextrose (Dextrose 50%) STAT PRN IV Hypoglycemia 12/28/17 18:15 01/25/18 18:14 Heparin Sodium (Porcine) (Heparin 5000 units/ml) 5,000 units EVERY 12 HOURS SUBQ 12/28/17 21:00 01/25/18 20:59 12/31/17 09:56 Lorazepam (Ativan 2mg/ml 1ml) 0.5 mg Q4H PRN IV For Anxiety 12/28/17 18:15 01/02/18 18:14 Morphine Sulfate (Morphine Sulfate) 2 mg Q4H PRN IVP severe pain 7-10 12/28/17 18:15 01/02/18 18:14 Nitroglycerin (Ntg) 0.4 mg Q5M X 3 DOSES PRN SL Prn Chest Pain 12/28/17 15:00 01/25/18 18:14 Ondansetron HCl (Zofran) 4 mg Q6H PRN IVP Nausea & Vomiting 12/28/17 18:15 01/25/18 18:14 Promethazine HCl/ Codeine (Phenergan with Codeine) 5 ml Q6H PRN ORAL cough 12/28/17 18:15 01/25/18 18:14 Temazepam (Restoril) 15 mg HSPRN PRN ORAL Insomnia 12/28/17 18:15 01/02/18 18:14 Theophylline (Rich-Dur) 100 mg EVERY 12 HOURS ORAL 12/28/17 21:00 01/25/18 20:59 12/31/17 09:50 [place] ([facility])Karen NP Dec 31, 2017 14:38
[2017-12-31 16:00] VITALS: BP 122/78
[2017-12-31 20:00] VITALS: BP 106/67
[2018-01-01] VITALS: BP 110/73
[2018-01-01] MEDS: Ampicillin/Sulbactam Sod 3 GM in NS 110 ML IVPB SCH ×3 (00:20→12:00)
[2018-01-01 04:00] VITALS: BP 103/63
[2018-01-01 08:00] VITALS: BP 132/83
[2018-01-01] MEDS: Heparin 5000 units/ml inj SUBQ SCH ×2 (09:00→09:14)
--- NOTE | 2018-01-01 09:07 | Diagnostic Imaging Report ---
Indication: Shortness of breath Technique: One view of the chest Comparison: 12/29/2019 Findings: Less optimal inspiration currently. Slightly increased infiltrate is seen in the inferior right upper lobe. There is decreased is infiltrate in the left lung base. The pleural spaces remain clear. The heart size is normal Impression: Slightly more extensive right upper lobe infiltrate, over 3 days Largely resolved left basilar infiltrate
[2018-01-01] MEDS: Theophylline ER 100mg ORAL SCH (09:13)
[2018-01-01] MEDS ORDERED: AUGMENTIN 875-1 EAC1 ORAL (09:49)
[2018-01-01] MEDS ORDERED: ADVAIR 250-501 EACH INH (09:55)
[2018-01-01] MEDS ORDERED: PROAIR HFA8.5 GM INH (09:59)
--- NOTE | 2018-01-01 11:00 | Infectious Diseases Prog Note ---
Assessment/Plan Assessment/Plan Assessment: PNA, CAP ( Pneumococcal ) -CXR: Bilateral infiltrates. The right upper lobe infiltrate appears improved -Influenza A/B neg Pneumococcal bacteremia Recent sinus infection Leukocytosis , SP -afebrile Lactic acidosis Hx of Asthma Hx of sinuitis Plan: -cont IV Unasyn ( AB Rx d # 7 ) upon discharge can be transition to PO Augmentin x 4 d (Rx in chart) 12/29 SP azithromycin d# 4 , Vanco d # 2 12/27 SP Zosyn d# 2 -f/u cx ( Bl ) -Monitor CBC/BMP, temperatures -aspiration precautions Subjective Constitutional: Denies: no symptoms, fever, chills, fatigue, anorexia, drenching sweats, other Allergies: Coded Allergies: IBUPROFEN (Verified Allergy, Unknown, 12/26/17) TETRACYCLINE (Verified Allergy, Unknown, 12/26/17) Objective Vital Signs Last 24 Hour Vital Signs Date Time Temp Pulse Resp B/P (MAP) Pulse Ox O2 Delivery O2 Flow Rate FiO2 01/01/18 08:00 98.5 89 20 132/83 94 Room Air 98.5 01/01/18 04:00 98.6 82 19 103/63 96 Room Air 98.6 01/01/18 00:00 98.6 80 19 110/73 96 Room Air 98.6 12/31/17 20:00 98.9 92 20 106/67 93 Room Air 98.9 12/31/17 16:00 98.4 97 20 122/78 Room Air 98.4 12/31/17 15:48 90 16 98 Room Air 12/31/17 15:38 82 16 96 Room Air 21 12/31/17 12:00 99.1 92 20 123/78 93 Room Air 99.1 Height (Feet): 6 Height (Inches): 11.00 Weight (Pounds): 249 HEENT: anicteric Respiratory/Chest: no respiratory distress Abdomen: no organomegaly Current Medications Medications (Trade) Dose Ordered Sig/Renee Route PRN Reason Start Time Stop Time Status Last Admin Dose Admin Acetaminophen (Tylenol) 650 mg Q6H PRN ORAL Mild Pain/Temp > 100.5 12/28/17 15:30 01/25/18 21:29 12/31/17 00:16 Ampicillin Sodium/ Sulbactam Sodium 3 gm/Sodium Chloride 110 ml @ 220 mls/hr Q6HR IVPB 12/28/17 18:00 01/04/18 17:59 01/01/18 05:28 Dextrose (Dextrose 50%) STAT PRN IV Hypoglycemia 12/28/17 18:15 01/25/18 18:14 Heparin Sodium (Porcine) (Heparin 5000 units/ml) 5,000 units EVERY 12 HOURS SUBQ 12/28/17 21:00 01/25/18 20:59 12/31/17 21:36 Lorazepam (Ativan 2mg/ml 1ml) 0.5 mg Q4H PRN IV For Anxiety 12/28/17 18:15 01/02/18 18:14 Morphine Sulfate (Morphine Sulfate) 2 mg Q4H PRN IVP severe pain 7-10 12/28/17 18:15 01/02/18 18:14 Nitroglycerin (Ntg) 0.4 mg Q5M X 3 DOSES PRN SL Prn Chest Pain 12/28/17 15:00 01/25/18 18:14 Ondansetron HCl (Zofran) 4 mg Q6H PRN IVP Nausea & Vomiting 12/28/17 18:15 01/25/18 18:14 Promethazine HCl/ Codeine (Phenergan with Codeine) 5 ml Q6H PRN ORAL cough 12/28/17 18:15 01/25/18 18:14 Temazepam (Restoril) 15 mg HSPRN PRN ORAL Insomnia 12/28/17 18:15 01/02/18 18:14 Theophylline (Rich-Dur) 100 mg EVERY 12 HOURS ORAL 12/28/17 21:00 01/25/18 20:59 01/01/18 09:13 KULDIP DAS M.D. Jan 01, 2018 11:00
[2018-01-01 12:00] VITALS: BP 109/67
[2018-01-01] MEDS ORDERED: NS 275ml ONE (16:09)
--- NOTE | 2018-01-01 16:45 | Pulmonology Progress Note ---
Assessment/Plan Problems: (1) Pneumonia (2) Respiratory distress Assessment/Plan continue abx check cultures med/surg ID f/u dc home with oral abx ( written by dr Tobar) Subjective ROS Limited/Unobtainable: No Constitutional: Reports: no symptoms HEENT: Repors: no symptoms Respiratory: Reports: no symptoms Allergies: Coded Allergies: IBUPROFEN (Verified Allergy, Unknown, 12/26/17) TETRACYCLINE (Verified Allergy, Unknown, 12/26/17) Objective Last 24 Hour Vital Signs Date Time Temp Pulse Resp B/P (MAP) Pulse Ox O2 Delivery O2 Flow Rate FiO2 01/01/18 12:00 97.8 90 18 109/67 97 Room Air 97.8 01/01/18 08:00 98.5 89 20 132/83 94 Room Air 98.5 01/01/18 04:00 98.6 82 19 103/63 96 Room Air 98.6 01/01/18 00:00 98.6 80 19 110/73 96 Room Air 98.6 12/31/17 20:00 98.9 92 20 106/67 93 Room Air 98.9 Intake and Output 12/31/17 01/01/18 19:00 07:00 Intake Total 360 ml Balance 360 ml Intake Oral 360 ml # Voids 2 # Bowel Movements 4 General Appearance: WD/WN HEENT: normocephalic, atraumatic Respiratory/Chest: chest wall non-tender, lungs clear Breasts: no masses Cardiovascular: normal peripheral pulses Abdomen: normal bowel sounds, soft, non tender Extremities: no cyanosis 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 Lymphatic: no neck adenopathy Musculoskeletal: normal muscle bulk Current Medications Medications (Trade) Dose Ordered Sig/Renee Route PRN Reason Start Time Stop Time Status Last Admin Dose Admin Acetaminophen (Tylenol) 650 mg Q6H PRN ORAL Mild Pain/Temp > 100.5 12/28/17 15:30 01/25/18 21:29 12/31/17 00:16 Ampicillin Sodium/ Sulbactam Sodium 3 gm/Sodium Chloride 110 ml @ 220 mls/hr Q6HR IVPB 12/28/17 18:00 01/04/18 17:59 01/01/18 05:28 Dextrose (Dextrose 50%) STAT PRN IV Hypoglycemia 12/28/17 18:15 3/25/18 18:14 Heparin Sodium (Porcine) (Heparin 5000 units/ml) 5,000 units EVERY 12 HOURS SUBQ 12/28/17 21:00 01/25/18 20:59 12/31/17 21:36 Lorazepam (Ativan 2mg/ml 1ml) 0.5 mg Q4H PRN IV For Anxiety 12/28/17 18:15 01/02/18 18:14 Morphine Sulfate (Morphine Sulfate) 2 mg Q4H PRN IVP severe pain 7-10 12/28/17 18:15 01/02/18 18:14 Nitroglycerin (Ntg) 0.4 mg Q5M X 3 DOSES PRN SL Prn Chest Pain 12/28/17 15:00 01/25/18 18:14 Ondansetron HCl (Zofran) 4 mg Q6H PRN IVP Nausea & Vomiting 12/28/17 18:15 01/25/18 18:14 Promethazine HCl/ Codeine (Phenergan with Codeine) 5 ml Q6H PRN ORAL cough 12/28/17 18:15 01/25/18 18:14 Temazepam (Restoril) 15 mg HSPRN PRN ORAL Insomnia 12/28/17 18:15 01/02/18 18:14 Theophylline (Rich-Dur) 100 mg EVERY 12 HOURS ORAL 12/28/17 21:00 01/25/18 20:59 01/01/18 09:13 RITU RODRIGUEZ Jan 01, 2018 16:45
--- NOTE | 2018-01-02 07:32 | Discharge Summary ---
Discharge Summary Hospital Course Date of Admission Dec 26, 2017 at 16:00 Date of Discharge Jan 01, 2018 at 16:10 Admitting Diagnosis pneumonia HPI Hailey Maciel is a 57 year old female who was admitted on Dec 26, 2017 at 16:00 for Pneumonia Hospital Course [id number] Discharge Discharge Disposition Patient was discharged to Home (01) Discharge Diagnoses: Ly Brice NP Jan 02, 2018 07:32
--- NOTE | 2018-01-03 00:30 | Discharge Summary 2 SIG ---
DATE OF ADMISSION: 12/26/2017 DATE OF DISCHARGE: 01/01/2018 HYDROLOGICAL TECHNICAL OFFICER: Boone Tobar M.D. BRIEF HOSPITAL COURSE: The patient is a 57-year-old female with history of asthma and sinusitis, presented to ED complaining of shortness of breath. The patient has been having cough and wheezing for the past month. She was given breathing treatments by the EMS. She denied fever or chills. Denied chest pain or any associated symptoms. On evaluation at ED, she had wheezing with decreased breath sounds. Blood work showed leukocytosis. WBC was 16 and lactic acid was 4.9. Creatinine was 1.6. BUN was 16. She had a chest x-ray done that showed bilateral infiltrates. EKG was in sinus tachycardia with no ischemic changes seen. She was given IV hydration and was started on IV antibiotics, ceftriaxone, and Zithromax. Potassium was 2.9. She was given 40 mEq KCl. Rapid influenza tests were negative. She was then admitted to [facility] for evaluation of sepsis and pneumonia. She was followed by Infectious Diseases specialist. IV Zosyn was switched to IV Unasyn. She was continued on azithromycin. She was given respiratory treatments and was started on Rich-Dur 100 mg q.12 h. She was given Solu-Medrol 60 mg q.6 h. She had an echocardiogram done, which showed ejection fraction of 45% to 50% with global left ventricular hypokinesis. There was no evidence of pericardial effusion. No aortic insufficiency. Initial blood culture showed growth of Streptococcus pneumoniae. Sputum culture showed Yanni with usual upper respiratory sarah. She was continued on Unasyn. Repeat blood culture was negative. Subsequent chest x-ray done showed improvement. The patient was eventually discharged home to continue with oral antibiotics. FINAL DIAGNOSES: 1. Sepsis, present on admission with bacteremia. 2. Streptococcal pneumoniae bacteremia. 3. Bilateral pneumonia. 4. Mild cardiomyopathy. 5. Mild pulmonary hypertension. 6. Acute kidney injury. 7. Anemia. 8. Hypokalemia. 9. Lactic acidosis. 10. Recent sinus infection. DISPOSITION: The patient was discharged home. DISCHARGE MEDICATIONS: Continue with Augmentin 875/125 mg one tablet b.i.d. for four more days. Continue with ProAir and Advair. Refer to medication list. DISCHARGE INSTRUCTIONS: Follow up with PMD in a week. Efrain Nichols M.D. I have been assigned to dictate discharge summary on this account and I was not involved in the patient's management. Ly Brice N.P. DR: Stacia JOB#: [id number] CC: ALVIN
== END 2018-01-01 16:10 | disposition home or self-care (01) | DRG 720 ==
LOC: EDBD 12:55 → EMR 13:15 → EDBEDREQ 15:25 → EDBEDREQSVC 15:26 → 2W 16:00 → EDBEDREQ 16:16 → 3E 12-28 15:21
DX: A40.3 Sepsis due to Streptococcus pneumoniae (principal); N17.9 Acute kidney failure, unspecified; J18.9 Pneumonia, unspecified organism; I42.9 Cardiomyopathy, unspecified; I27.20 Pulmonary hypertension, unspecified; J45.909 Unspecified asthma, uncomplicated; D64.9 Anemia, unspecified; E87.6 Hypokalemia
CPT/HCPCS: 36415; 71045; 80048; 80053; 81003; 82248; 83605; 83735; 83880; 84100; 85007; 85025; 85651; 86140; 86710; 87040; 87070; 87181; 87205; 87324; 93005; 93306; 94640; 94664; 94760; 99285; J7620; J8499